=== PATIENT | female | born 1995 | race Caucasian/White ===

== ENCOUNTER 2017-09-17 10:05 | Inpatient (IN) | payer OTHER ==
[2017-09-17 11:18] VITALS: BMI 21.9
--- NOTE | 2017-09-17 15:27 | HP ---
COWS - Scale Resting Pulse: 2= [place] 101-120 Sweatin=Flushed/Facial Moisture Restless Observation: 1= Difficult to Sit Still Pupil Size: 0= Normal to Room Light Bone or Joint Aches: 2= Severe Diffuse Aches Runny Nose/ Eye Tearin= Runny Nose/Eyes GI Upset > 30mins: 1= Stomach Cramp Tremor Observation: 2= Slight Tremor Visible Yawning Observation: 2= >3x During Session Anxiety or Irritability: 2=Irritable/Anxious Goose Flesh Skin: 3=Piloerection COWS Score: 19 CIWA Score - CIWA Score Nausea/Vomitin-Mild Nausea/No Vomiting Muscle Tremors: 4-Moderate,w/Arms Extend Anxiety: 4-Mod. Anxious/Guarded Agitation: 4-Moderately Restless Paroxysmal Sweats: 3 Orientation: 0-Oriented Tacttile Disturbances: 0-None Auditory Disturbances: 0-None Visual Disturbances: 0-None Headache: 1-Very Mild CIWA-Ar Total Score: 17 Admission ROS S - HPI Chief Complaint: I am here to detox off these drugs. Allergies/Adverse Reactions: Allergies Allergy/AdvReac Type Severity Reaction Status Date / Time cyclobenzaprine Allergy Intermediate Hives Verified 09/17/17 13:19 [From [facility]] History of Present Illness: pt is a 22yr old female with a history of heroin and xanax dependence seeking detox for treatment. Exam Limitations: No Limitations - Ebola screening Have you traveled outside of the country in the last 21 days: No (N) Have you had contact with anyone from an Ebola affected area: No Have you been sick,other than usual withdrawal symptoms: No Do you have a fever: No - Review of Systems Constitutional: Chills, Diaphoresis, Loss of Appetite, Night Sweats, Changes in sleep EENT: reports: Tearing, Nose Congestion Respiratory: reports: No Symptoms reported Cardiac: reports: No Symptoms Reported GI: reports: Constipated, Nausea, Poor Appetite, Poor Fluid Intake, Indigestion : reports: No Symptoms Reported Musculoskeletal: reports: No Symptoms Reported Integumentary: reports: Flushing, Sweating Neuro: reports: Headache, Tingling, Tremors Endocrine: reports: Excessive Sweating, Flushing, Intolerance to Cold, Intolerance to Heat Hematology: reports: No Symptoms Reported Psychiatric: reports: No Sypmtoms Reported, Judgement Intact, Mood/Affect Appropiate, Orientated x3, Agitated, Anxious, Depressed Other Systems: Reviewed and Negative Patient History - Patient Medical History Hx Anemia: No Hx Asthma: No Hx Chronic Obstructive Pulmonary Disease (COPD): No Hx Cancer: No Hx Cardiac Disorders: No Hx Congestive Heart Failure: No Hx Hypertension: No Hx Hypercholesterolemia: No Hx Pacemaker: No HX Cerebrovascular Accident: No Hx Seizures: No Hx Dementia: No Hx Diabetes: No Hx Gastrointestinal Disorders: No Hx Liver Disease: No Hx Genitourinary Disorders: No Hx Sexually Transmitted Disorders: No Hx Renal Disease (ESRD): No Hx Thyroid Disease: No Hx Human Immunodeficiency Virus (HIV): No (negative) Hx Hepatitis C: No (negative) Hx Depression: Yes Hx Suicide Attempt: No (denies) Hx Bipolar Disorder: No Hx Schizophrenia: No - Patient Surgical History Past Surgical History: Yes Hx Neurologic Surgery: No Hx Cataract Extraction: No Hx Cardiac Surgery: No Hx Lung Surgery: No Hx Breast Surgery: No Hx Breast Biopsy: No Hx Abdominal Surgery: No Hx Appendectomy: No Hx Cholecystectomy: No Hx Genitourinary Surgery: No Hx Section: No Hx Orthopedic Surgery: Yes (MICRODISCECTOMY 12/2015) Hx Hysterectomy: No Anesthesia Reaction: No - PPD History Previous Implant?: Yes Documented Results: Negative w/o proof Implanted On Prior R Admission?: No PPD to be Administered?: Yes - Reproductive History Patient is a Female of Child Bearing Age (11 -55 yrs old): Yes Last Menstrual Period: 08/25/17 Patient : No - Smoking Cessation Smoking history: Current every day smoker Have you smoked in the past 12 months: Yes If you are a former smoker, when did you quit?: 1 WEEK AGO Hx Chewing Tobacco Use: No Initiated information on smoking cessation: Yes 'Breaking Loose' booklet given: 09/17/17 - Substance & Tx. History Hx Alcohol Use: No Hx Substance Use: Yes Substance Use Type: Heroin, Tranquilizers Hx Substance Use Treatment: Yes (last detox 06/2017 [facility]) - Substances Abused Heroin Route: Inhalation Frequency: Daily Amount used: 20 bags Age of first use: 20 Date of Last Use: 09/17/17 Alprazolam (Xanax) Route: Oral Frequency: Daily Amount used: 4-6 2 mg pills Age of first use: 18 Date of Last Use: 09/16/17 Family Disease History - Family Disease History Family Disease History: [place]: Grandparent Admission Physical Exam [facility] - Vital Signs Vital Signs: Vital Signs - 24 hr 09/17/17 11:15 Temperature 96.8 F L Pulse Rate 120 H Respiratory 18 Rate Blood Pressure 112/76 - Physical General Appearance: Yes: Appropriately Dressed, Moderate Distress, Thin, Tremorous, Irritable, Sweating, Anxious HEENTM: Yes: Normal Voice, Nasal Congestion, Rhinorrhea Respiratory: Yes: Lungs Clear, Normal Breath Sounds, No Respiratory Distress Neck: Yes: No masses,lesions,Nodules Breast: Yes: Within Normal Limits Cardiology: Yes: Regular Rhythm, Regular Rate, S1, S2 Abdominal: Yes: Normal Bowel Sounds, Non Tender, Soft Genitourinary: Yes: Within Normal Limits Back: Yes: Normal Inspection Musculoskeletal: Yes: full range of Motion, Gait Steady, Back pain Extremities: Yes: Normal Capillary Refill, Normal Inspection, Non-Tender, Tremors 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: Yes: Fully Oriented, Alert, Normal Response Integumentary: Yes: Normal Color, Diaphoresis Lymphatic: Yes: Within Normal Limits - Diagnostic (1) Opioid dependence with withdrawal Current Visit: Yes Status: Chronic (2) Sedative, hypnotic or anxiolytic dependence with withdrawal, uncomplicated Current Visit: Yes Status: Chronic (3) Nicotine dependence Current Visit: Yes Status: Chronic Qualifiers: Nicotine product type: cigarettes Substance use status: uncomplicated Qualified Code(s): F17.210 - Nicotine dependence, cigarettes, uncomplicated Cleared for Admission [facility] - Detox or Rehab [facility] Level of Care: Medically Managed Detox Regimen/Protocol: Methadone/Valium [facility] Breath Alcohol Content Breath Alcohol Content: 0 Urine Pregancy Test - Result Urine Test Results: Negative- NO Line Present Urine Drug Screen - Results Drug Screen Negative: No Urine Drug Screen Results: OPI-Opiates, BZO-Benzodiazepines, OXY-Oxycodone
[2017-09-17] MEDS ORDERED: ACETAMINOPHEN 325 MG TABLET (FP) PO PRN (15:34)
[2017-09-17] MEDS ORDERED: MAG HYDROX/AL HYDROX/SIMETH 30 ML UNIT-DOSE CUP PO PRN (15:34)
[2017-09-17] MEDS ORDERED: guaiFENesin/D-METHORPHAN HB 10 ML UNIT-DOSE CUPS PO PRN (15:34)
[2017-09-17] MEDS ORDERED: MENTHOL/PHENOL 1 EACH UD MM PRN (15:34)
[2017-09-17] MEDS ORDERED: P-EPHED 60MG/TRIPROLIDI 2.5MG TABLET PO PRN (15:34)
[2017-09-17] MEDS ORDERED: NICOTINE POLACRILEX 4 MG GUM BUC PRN (15:34)
[2017-09-17] MEDS ORDERED: MAGNESIUM HYDROX 2400MG/30ML ORAL SUSPENSION 30 ML CUP PO PRN (15:34)
[2017-09-17] MEDS ORDERED: LOPERAMIDE HCL 2 MG CAPSULE PO PRN (15:34)
[2017-09-17] MEDS ORDERED: IBUPROFEN 400 MG TABLET (FP) PO PRN (15:34)
[2017-09-17] MEDS ORDERED: MAGNESIUM CITRATE 300 ML BOTTLE PO PRN (15:34)
[2017-09-17] MEDS ORDERED: diazePAM 5 MG TABLET PO ONE (15:51)
[2017-09-17] MEDS ORDERED: METHADONE HCL 10 MG TABLET (FOR DETOX USE ONLY) PO ONE ×2 (15:51→23:00)
[2017-09-17] MEDS ORDERED: METHADONE HCL 10 MG TABLET (FOR DETOX USE ONLY) ONE (18:49)
[2017-09-17] MEDS: THIAMINE HCL 100 MG TABLET (FP) PO SCH (22:38)
[2017-09-17] MEDS: diazePAM 5 MG TABLET PO SCH (22:42)
[2017-09-17 23:19] LABS: URINE APPEARANCE SLCLOUDY; URINE BILIRUBIN NEGATIVE (NEGATIVE); URINE BLOOD NEGATIVE (NEGATIVE); URINE COLOR LTYELLOW; URINE GLUCOSE (UA) NEGATIVE (NEGATIVE); URINE KETONE NEGATIVE (NEGATIVE); URINE NITRITE NEGATIVE (NEGATIVE); URINE PROTEIN NEGATIVE (NEGATIVE); URINE UROBILINOGEN NEGATIVE mg/dL (0.2-1.0)
[2017-09-17 23:47] LABS: URINE LEUK ESTERASE 2+ (NEGATIVE)
[2017-09-18 00:26] LABS: EPI CELLS FEW /HPF (FEW); URINE BACTERIA RARE /hpf (NONE SEEN); URINE MUCUS RARE
[2017-09-18] MEDS: diazePAM 5 MG TABLET PO SCH ×3 (07:32→22:33)
[2017-09-18] MEDS ORDERED: METHADONE HCL 10 MG TABLET (FOR DETOX USE ONLY) PO SCH (10:00)
[2017-09-18 10:43] LABS: HEMATOCRIT 39.7 % (32.4-45.2); HEMOGLOBIN 13.4 GM/dL (10.7-15.3); MCH 29.2 pg (25.7-33.7); MCHC 33.6 g/dl (32.0-36.0); PLATELET COUNT 207 K/MM3 (134-434); RBC 4.56 M/mm3 (3.60-5.2); RDW 12.4 % (11.6-15.6); WHITE BLOOD COUNT 5.2 K/mm3 (4.0-10.0)
[2017-09-18 10:49] LABS: ALBUMIN 4.1 g/dl (3.4-5.0); ANION GAP 8 (8-16); BLOOD UREA NITROGEN 7 mg/dL (7-18); CHLORIDE 102 mmol/L (98-107); CO2 31 mmol/L (21-32); CREATININE 0.7 mg/dL (0.55-1.02); GLUCOSE,RANDOM 81 mg/dL (74-106); POTASSIUM 4.3 mmol/L (3.5-5.1); SGOT/AST 28 U/L (15-37); SGPT/ALT 27 U/L (12-78); SODIUM 141 mmol/L (136-145)
[2017-09-18 10:50] LABS: ALK PHOS 100 U/L (45-117); BILIRUBIN,TOTAL 0.4 mg/dL (0.2-1.0); TOT PROT 7.4 g/dl (6.4-8.2)
[2017-09-18] MEDS: PRENATAL VITAMINS W/ FOLIC ACID TABLET (FP) PO SCH (11:07)
[2017-09-18] MEDS: NICOTINE 14 MG/24 HOURS TOPICAL PATCH TD SCH (11:09)
[2017-09-18] MEDS: diazePAM 5 MG TABLET PO PRN ×2 (11:32→17:49)
[2017-09-18] MEDS ORDERED: CYCLOBENZAPRINE HCL 10 MG TABLET (FP) PO PRN (12:17)
--- NOTE | 2017-09-18 12:17 | PN ---
[facility] CIWA - CIWA Score Nausea/Vomitin Muscle Tremors: 3 Anxiety: 3 Agitation: 2 Paroxysmal Sweats: 1-Minimal Palms Moist Orientation: 0-Oriented Tacttile Disturbances: 1-Very Mild Itch/Numbness Auditory Disturbances: 1-Very Mild Visual Disturbances: 0-None Headache: 2-Mild CIWA-Ar Total Score: 16 [facility] COWS - Scale Resting Pulse: 0= [place] 80 or Below Sweatin= Chills/Flushing Restless Observation: 3= Extraneous Movement Pupil Size: 1= Pupils >than Normal Bone or Joint Aches: 2= Severe Diffuse Aches Runny Nose/ Eye Tearin= Runny Nose/Eyes GI Upset > 30mins: 2= Nausea/Diarrhea Tremor Observation of Outstretched Hands: 2= Slight Tremor Visible Yawning Observation: 1= 1-2x During Session Anxiety or Irritability: 2=Irritable/Anxious Goose Flesh Skin: 0=Smooth Skin COWS Score: 16 [facility] Progress Note (SOAP) Subjective: ALERT,IRRITABLE,ANXIOUS,INTERRUPTED SLEEP,TREMOR,PAIN N THE BODY AND BACK Objective: 09/18/17 12:13 Vital Signs Temperature 97.7 F 09/18/17 10:28 Pulse Rate 80 09/18/17 10:28 Respiratory Rate 16 09/18/17 10:28 Blood Pressure 106/71 09/18/17 10:28 O2 Sat by Pulse Oximetry (%) 09/18/17 12:14 EKG NSR WITH SINUS ARRHYTHMIA 09/18/17 12:16 Laboratory Last Values WBC 5.2 K/mm3 (4.0-10.0) 09/18/17 06:00 RBC 4.56 M/mm3 (3.60-5.2) 09/18/17 06:00 Hgb 13.4 GM/dL (10.7-15.3) 09/18/17 06:00 Hct 39.7 % (32.4-45.2) 09/18/17 06:00 MCV 87.0 fl (80-96) 09/18/17 06:00 MCH 29.2 pg (25.7-33.7) 09/18/17 06:00 MCHC 33.6 g/dl (32.0-36.0) 09/18/17 06:00 RDW 12.4 % (11.6-15.6) 09/18/17 06:00 Plt Count 207 K/MM3 (134-434) 09/18/17 06:00 MPV 9.0 fl (7.5-11.1) 09/18/17 06:00 Sodium 141 mmol/L (136-145) 09/18/17 06:00 Potassium 4.3 mmol/L (3.5-5.1) 09/18/17 06:00 Chloride 102 mmol/L (98-107) 09/18/17 06:00 Carbon Dioxide 31 mmol/L (21-32) 09/18/17 06:00 Anion Gap 8 (8-16) 09/18/17 06:00 BUN 7 mg/dL (7-18) 09/18/17 06:00 Creatinine 0.7 mg/dL (0.55-1.02) 09/18/17 06:00 Creat Clearance w eGFR > 60 (>60) 09/18/17 06:00 Random Glucose 81 mg/dL (74-106) 09/18/17 06:00 Calcium 9.0 mg/dL (8.5-10.1) 09/18/17 06:00 Total Bilirubin 0.4 mg/dL (0.2-1.0) 09/18/17 06:00 AST 28 U/L (15-37) 09/18/17 06:00 ALT 27 U/L (12-78) 09/18/17 06:00 Alkaline Phosphatase 100 U/L (45-117) 09/18/17 06:00 Total Protein 7.4 g/dl (6.4-8.2) 09/18/17 06:00 Albumin 4.1 g/dl (3.4-5.0) 09/18/17 06:00 Urine Color Ltyellow 09/17/17 21:00 Urine Appearance Slcloudy 09/17/17 21:00 Urine pH 6.0 (5.0-8.0) 09/17/17 21:00 Ur Specific [place] 1.005 (1.001-1.035) 09/17/17 21:00 Urine Protein Negative (NEGATIVE) 09/17/17 21:00 Urine Glucose (UA) Negative (NEGATIVE) 09/17/17 21:00 Urine Ketones Negative (NEGATIVE) 09/17/17 21:00 Urine Blood Negative (NEGATIVE) 09/17/17 21:00 Urine Nitrite Negative (NEGATIVE) 09/17/17 21:00 Urine Bilirubin Negative (NEGATIVE) 09/17/17 21:00 Urine Urobilinogen Negative mg/dL (0.2-1.0) 09/17/17 21:00 Ur Leukocyte Esterase 2+ (NEGATIVE) H 09/17/17 21:00 Urine WBC (Auto) 9 /hpf (3-5) 09/17/17 21:00 Urine RBC (Auto) 2 /hpf (0-3) 09/17/17 21:00 Ur Epithelial Cells Few /HPF (FEW) 09/17/17 21:00 Urine Bacteria Rare /hpf (NONE SEEN) 09/17/17 21:00 Urine Mucus Rare 09/17/17 21:00 Assessment: 09/18/17 12:16 WITHDRAWAL SYMPTOM Plan: CONTINUE DETOX
--- NOTE | 2017-09-18 16:58 | EKG ---
Test Reason : Blood Pressure : / mmHG Vent. Rate : 069 BPM Atrial Rate : 069 BPM P-R Int : 148 ms QRS Dur : 090 ms QT Int : 398 ms P-R-T Axes : 037 072 054 degrees QTc Int : 426 ms NORMAL SINUS RHYTHM WITH SINUS ARRHYTHMIA NORMAL ECG NO PREVIOUS ECGS AVAILABLE Confirmed by DION ROJAS MD ([id number]) on 09/18/2017 4:58:26 PM Referred By: Confirmed By:DION ROJAS MD
--- NOTE | 2017-09-18 18:17 | CONSULT ---
[facility] Psychiatric Consult - Data Date of interview: 09/18/17 Admission source: [facility] Identifying data: First admission to [facility] for this 22 y/o female seeking detox treatment on for heroin and xanax dependence.Patient is single without children,domiciled,unemployed and supported by her parents. Substance Abuse History: Confirmed by patient.See details in current [facility] report : Smoking history: Current every day smoker. Have you smoked in the past 12 months: Yes. If you are a former smoker, when did you quit?: 1 WEEK AGO. Hx Chewing Tobacco Use: No. Initiated information on smoking cessation: Yes. ' Breaking Loose' booklet given: 09/17/17. - Substance & Tx. History. Hx Alcohol Use: No. Hx Substance Use: Yes. Substance Use Type: Heroin, Tranquilizers. Hx Substance Use Treatment: Yes (last detox 06/2017 [facility]). - Substances Abused. Heroin. Route: Inhalation. Frequency: Daily. Amount used: 20 bags. Age of first use: 20. Date of Last Use: . Alprazolam (Xanax). Route: Oral. Frequency: Daily. Amount used: 4-6 2 mg pills. Age of first use: 18. Date of Last Use: 09/16/17 Medical History: History of fracture of nasal bones,torn rotator cuff and microdiscectomy (2016). Psychiatric History: Patient denies. Physical/Sexual Abuse/Trauma History: Patient denies. Additional Comment: Urine Drug Screen Results: OPI-Opiates, BZO-Benzodiazepines , OXY-Oxycodone.Noted. Mental Status Exam - Mental Status Exam Alert and Oriented to: Time, Place, Person Cognitive Function: Good Patient Appearance: Well Groomed (thin habitus,short stature and appearing younger than her stated age) Mood: Anxious, Hopeful Affect: Mood Congruent Patient Behavior: Fatigued, Cooperative Speech Pattern: Clear, Appropriate Voice Loudness: Normal Thought Process: Intact, Goal Oriented Thought Disorder: Not Present Hallucinations: Denies Suicidal Ideation: Denies Homicidal Ideation: Denies Insight/Judgement: Poor Sleep: Well Appetite: Good Muscle strength/Tone: Normal (no complaint of rigidity or weakness) Gait/Station: Normal Psychiatric Findings - Problem List ([place] 1, 2,3) (1) Opioid dependence with withdrawal Current Visit: Yes Status: Acute (2) Sedative, hypnotic or anxiolytic dependence with withdrawal, uncomplicated Current Visit: Yes Status: Acute (3) Nicotine dependence Current Visit: Yes Status: Acute Qualifiers: Nicotine product type: cigarettes Substance use status: uncomplicated Qualified Code(s): F17.210 - Nicotine dependence, cigarettes, uncomplicated - Initial Treatment Plan Initial Treatment Plan: Psychoeducation and support provided.Detoxification in progress.Daily group therapy.Observation.
[2017-09-18] MEDS: THIAMINE HCL 100 MG TABLET (FP) PO SCH (22:32)
[2017-09-18] MEDS: cloNIDine HCL 0.1 MG TABLET PO SCH (23:44)
[2017-09-19] MEDS: diazePAM 5 MG TABLET PO PRN (06:59)
[2017-09-19] MEDS: PRENATAL VITAMINS W/ FOLIC ACID TABLET (FP) PO SCH (10:57)
[2017-09-19] MEDS: NICOTINE 14 MG/24 HOURS TOPICAL PATCH TD SCH (10:57)
[2017-09-19] MEDS: diazePAM 5 MG TABLET PO SCH ×2 (10:58→22:33)
[2017-09-19] MEDS: METHADONE HCL 5 MG TABLET (FOR DETOX USE ONLY) PO SCH (10:58)
[2017-09-19] MEDS: cloNIDine HCL 0.1 MG TABLET PO SCH ×2 (10:58→23:44)
--- NOTE | 2017-09-19 12:49 | PN ---
[facility] CIWA - CIWA Score Nausea/Vomitin-No Nausea/No Vomiting Muscle Tremors: 3 Anxiety: 3 Agitation: 3 Paroxysmal Sweats: 1-Minimal Palms Moist Orientation: 0-Oriented Tacttile Disturbances: 1-Very Mild Itch/Numbness Auditory Disturbances: 0-None Visual Disturbances: 0-None Headache: 0-None Present CIWA-Ar Total Score: 11 [facility] COWS - Scale Resting Pulse: 1= [place] 81-100 Sweatin= Chills/Flushing Restless Observation: 1= Difficult to Sit Still Pupil Size: 0= Normal to Room Light Bone or Joint Aches: 2= Severe Diffuse Aches Runny Nose/ Eye Tearin= Nasal Congestion GI Upset > 30mins: 1= Stomach Cramp Tremor Observation of Outstretched Hands: 2= Slight Tremor Visible Yawning Observation: 0= None Anxiety or Irritability: 2=Irritable/Anxious Goose Flesh Skin: 0=Smooth Skin COWS Score: 11 [facility] Progress Note (SOAP) Subjective: tremor sweat stuffy nose restlessness GI distress Objective: 09/19/17 12:49 Vital Signs Temperature 97.9 F 09/19/17 10:00 Pulse Rate 93 H 09/19/17 10:00 Respiratory Rate 20 09/19/17 10:00 Blood Pressure 103/66 09/19/17 10:00 O2 Sat by Pulse Oximetry (%) Laboratory Last Values WBC 5.2 K/mm3 (4.0-10.0) 09/18/17 06:00 RBC 4.56 M/mm3 (3.60-5.2) 09/18/17 06:00 Hgb 13.4 GM/dL (10.7-15.3) 09/18/17 06:00 Hct 39.7 % (32.4-45.2) 09/18/17 06:00 MCV 87.0 fl (80-96) 09/18/17 06:00 MCH 29.2 pg (25.7-33.7) 09/18/17 06:00 MCHC 33.6 g/dl (32.0-36.0) 09/18/17 06:00 RDW 12.4 % (11.6-15.6) 09/18/17 06:00 Plt Count 207 K/MM3 (134-434) 09/18/17 06:00 MPV 9.0 fl (7.5-11.1) 09/18/17 06:00 Sodium 141 mmol/L (136-145) 09/18/17 06:00 Potassium 4.3 mmol/L (3.5-5.1) 09/18/17 06:00 Chloride 102 mmol/L (98-107) 09/18/17 06:00 Carbon Dioxide 31 mmol/L (21-32) 09/18/17 06:00 Anion Gap 8 (8-16) 09/18/17 06:00 BUN 7 mg/dL (7-18) 09/18/17 06:00 Creatinine 0.7 mg/dL (0.55-1.02) 09/18/17 06:00 Creat Clearance w eGFR > 60 (>60) 09/18/17 06:00 Random Glucose 81 mg/dL (74-106) 09/18/17 06:00 Calcium 9.0 mg/dL (8.5-10.1) 09/18/17 06:00 Total Bilirubin 0.4 mg/dL (0.2-1.0) 09/18/17 06:00 AST 28 U/L (15-37) 09/18/17 06:00 ALT 27 U/L (12-78) 09/18/17 06:00 Alkaline Phosphatase 100 U/L (45-117) 09/18/17 06:00 Total Protein 7.4 g/dl (6.4-8.2) 09/18/17 06:00 Albumin 4.1 g/dl (3.4-5.0) 09/18/17 06:00 Urine Color Ltyellow 09/17/17 21:00 Urine Appearance Slcloudy 09/17/17 21:00 Urine pH 6.0 (5.0-8.0) 09/17/17 21:00 Ur Specific [place] 1.005 (1.001-1.035) 09/17/17 21:00 Urine Protein Negative (NEGATIVE) 09/17/17 21:00 Urine Glucose (UA) Negative (NEGATIVE) 09/17/17 21:00 Urine Ketones Negative (NEGATIVE) 09/17/17 21:00 Urine Blood Negative (NEGATIVE) 09/17/17 21:00 Urine Nitrite Negative (NEGATIVE) 09/17/17 21:00 Urine Bilirubin Negative (NEGATIVE) 09/17/17 21:00 Urine Urobilinogen Negative mg/dL (0.2-1.0) 09/17/17 21:00 Ur Leukocyte Esterase 2+ (NEGATIVE) H 09/17/17 21:00 Urine WBC (Auto) 9 /hpf (3-5) 09/17/17 21:00 Urine RBC (Auto) 2 /hpf (0-3) 09/17/17 21:00 Ur Epithelial Cells Few /HPF (FEW) 09/17/17 21:00 Urine Bacteria Rare /hpf (NONE SEEN) 09/17/17 21:00 Urine Mucus Rare 09/17/17 21:00 RPR Titer Nonreactive (NONREACTIVE) 09/18/17 06:00 HIV 1&2 Antibody Screen Negative 09/17/17 13:26 HIV P24 Antigen Negative 09/17/17 13:26 lab noted Assessment: 09/19/17 12:49 withdrawal sx Plan: continue detox
[2017-09-19] MEDS: THIAMINE HCL 100 MG TABLET (FP) PO SCH (22:33)
[2017-09-19] MEDS: hydrOXYzine PAMOATE 50 MG CAPSULE (FP) PO PRN (22:33)
[2017-09-20] MEDS: PRENATAL VITAMINS W/ FOLIC ACID TABLET (FP) PO SCH (11:06)
[2017-09-20] MEDS: cloNIDine HCL 0.1 MG TABLET PO SCH ×2 (11:06→22:35)
[2017-09-20] MEDS: diazePAM 5 MG TABLET PO SCH ×2 (11:07→22:32)
[2017-09-20] MEDS: NICOTINE 14 MG/24 HOURS TOPICAL PATCH TD SCH (11:07)
[2017-09-20] MEDS: METHADONE HCL 5 MG TABLET (FOR DETOX USE ONLY) PO SCH (11:07)
--- NOTE | 2017-09-20 11:56 | PN ---
[facility] Progress Note (SOAP) Subjective: ALERT,IRRITABLE,ANXIOUS,INTERRUPTED SLEEP,LEWIS IN THE BODY Objective: 09/20/17 11:56 Vital Signs Temperature 98 F 09/20/17 11:45 Pulse Rate 91 H 09/20/17 11:45 Respiratory Rate 16 09/20/17 11:45 Blood Pressure 135/111 09/20/17 11:45 O2 Sat by Pulse Oximetry (%) Assessment: 09/20/17 11:56 WITHDRAWAL SYMPTOM Plan: CONTINUE DETOX
[2017-09-20] MEDS: THIAMINE HCL 100 MG TABLET (FP) PO SCH (22:32)
[2017-09-20] MEDS: hydrOXYzine PAMOATE 50 MG CAPSULE (FP) PO PRN (22:33)
[2017-09-21] MEDS ORDERED: diazePAM 5 MG TABLET PO SCH (10:00)
[2017-09-21] MEDS ORDERED: METHADONE HCL 10 MG TABLET (FOR DETOX USE ONLY) PO SCH (10:00)
[2017-09-21] MEDS: PRENATAL VITAMINS W/ FOLIC ACID TABLET (FP) PO SCH (10:49)
[2017-09-21] MEDS: NICOTINE 14 MG/24 HOURS TOPICAL PATCH TD SCH (10:50)
[2017-09-21] MEDS: cloNIDine HCL 0.1 MG TABLET PO SCH ×2 (10:50→22:50)
--- NOTE | 2017-09-21 13:07 | PN ---
[facility] Progress Note (SOAP) Subjective: Alert, Interrupted sleep, irritable, shakes and chills Objective: 09/21/17 13:05 Vital Signs Temperature 97.7 F 09/21/17 10:19 Pulse Rate 92 H 09/21/17 10:19 Respiratory Rate 18 09/21/17 10:19 Blood Pressure 100/58 09/21/17 10:19 O2 Sat by Pulse Oximetry (%) Laboratory Last Values WBC 5.2 K/mm3 (4.0-10.0) 09/18/17 06:00 RBC 4.56 M/mm3 (3.60-5.2) 09/18/17 06:00 Hgb 13.4 GM/dL (10.7-15.3) 09/18/17 06:00 Hct 39.7 % (32.4-45.2) 09/18/17 06:00 MCV 87.0 fl (80-96) 09/18/17 06:00 MCH 29.2 pg (25.7-33.7) 09/18/17 06:00 MCHC 33.6 g/dl (32.0-36.0) 09/18/17 06:00 RDW 12.4 % (11.6-15.6) 09/18/17 06:00 Plt Count 207 K/MM3 (134-434) 09/18/17 06:00 MPV 9.0 fl (7.5-11.1) 09/18/17 06:00 Sodium 141 mmol/L (136-145) 09/18/17 06:00 Potassium 4.3 mmol/L (3.5-5.1) 09/18/17 06:00 Chloride 102 mmol/L (98-107) 09/18/17 06:00 Carbon Dioxide 31 mmol/L (21-32) 09/18/17 06:00 Anion Gap 8 (8-16) 09/18/17 06:00 BUN 7 mg/dL (7-18) 09/18/17 06:00 Creatinine 0.7 mg/dL (0.55-1.02) 09/18/17 06:00 Creat Clearance w eGFR > 60 (>60) 09/18/17 06:00 Random Glucose 81 mg/dL (74-106) 09/18/17 06:00 Calcium 9.0 mg/dL (8.5-10.1) 09/18/17 06:00 Total Bilirubin 0.4 mg/dL (0.2-1.0) 09/18/17 06:00 AST 28 U/L (15-37) 09/18/17 06:00 ALT 27 U/L (12-78) 09/18/17 06:00 Alkaline Phosphatase 100 U/L (45-117) 09/18/17 06:00 Total Protein 7.4 g/dl (6.4-8.2) 09/18/17 06:00 Albumin 4.1 g/dl (3.4-5.0) 09/18/17 06:00 Urine Color Ltyellow 09/17/17 21:00 Urine Appearance Slcloudy 09/17/17 21:00 Urine pH 6.0 (5.0-8.0) 09/17/17 21:00 Ur Specific [place] 1.005 (1.001-1.035) 09/17/17 21:00 Urine Protein Negative (NEGATIVE) 09/17/17 21:00 Urine Glucose (UA) Negative (NEGATIVE) 09/17/17 21:00 Urine Ketones Negative (NEGATIVE) 09/17/17 21:00 Urine Blood Negative (NEGATIVE) 09/17/17 21:00 Urine Nitrite Negative (NEGATIVE) 09/17/17 21:00 Urine Bilirubin Negative (NEGATIVE) 09/17/17 21:00 Urine Urobilinogen Negative mg/dL (0.2-1.0) 09/17/17 21:00 Ur Leukocyte Esterase 2+ (NEGATIVE) H 09/17/17 21:00 Urine WBC (Auto) 9 /hpf (3-5) 09/17/17 21:00 Urine RBC (Auto) 2 /hpf (0-3) 09/17/17 21:00 Ur Epithelial Cells Few /HPF (FEW) 09/17/17 21:00 Urine Bacteria Rare /hpf (NONE SEEN) 09/17/17 21:00 Urine Mucus Rare 09/17/17 21:00 RPR Titer Nonreactive (NONREACTIVE) 09/18/17 06:00 HIV 1&2 Antibody Screen Negative 09/17/17 13:26 HIV P24 Antigen Negative 09/17/17 13:26 Labs noted Assessment: 09/21/17 13:07 withdrawal symptoms Plan: Continue detox
[2017-09-21] MEDS: hydrOXYzine PAMOATE 50 MG CAPSULE (FP) PO PRN (22:48)
[2017-09-21] MEDS: THIAMINE HCL 100 MG TABLET (FP) PO SCH (22:48)
[2017-09-22] MEDS ORDERED: METHADONE HCL 5 MG TABLET (FOR DETOX USE ONLY) PO SCH (06:00)
[2017-09-22 07:31] VITALS: BP 81/48; PULSE 60; TEMP 98.1
--- NOTE | 2017-09-22 08:18 | DS ---
[facility] Detox Discharge Summary Admission Date: 09/17/17 Discharge Date: 09/22/17 - History Present History: Alcohol Dependence, Opioid Dependence - Physical Exam Results Vital Signs: Vital Signs Temperature 98.1 F 09/22/17 05:00 Pulse Rate 60 09/22/17 05:00 Respiratory Rate 20 09/22/17 05:00 Blood Pressure 81/48 09/22/17 05:00 O2 Sat by Pulse Oximetry (%) - Treatment Hospital Course: Detox Protocol Followed, Detoxed Safely, Responded well, Discharged Condition Good - Medication Discharge Medications: Ambulatory Orders NK [No Known Home Medication] 08/04/16
== END 2017-09-22 07:49 | disposition home or self-care (01) | DRG 773 ==
LOC: YASAS 10:05 → Y6N 15:17
PROVIDERS: ADMIT Internal Medicine; ATTEND Internal Medicine
PROC: HZ2ZZZZ Detoxification Services for Substance Abuse Treatment (ICD-10-PCS; principal; 2017-09-17)
DX: F11.23 Opioid dependence with withdrawal (principal); F13.230 Sedative, hypnotic or anxiolytic dependence with withdrawal, uncomplicated; F17.210 Nicotine dependence, cigarettes, uncomplicated; I49.9 Cardiac arrhythmia, unspecified; Z88.8 Allergy status to other drugs, medicaments and biological substances
CPT/HCPCS: 36415; 80053; 81003; 81015; 85027; 86593; 87389; 93005; 93010

== ENCOUNTER 2017-10-08 11:00 | Inpatient (IN) | payer OTHER ==
[2017-10-08 12:19] VITALS: BMI 22.6
--- NOTE | 2017-10-08 16:39 | HP ---
COWS - Scale Resting Pulse: 0= [place] 80 or Below Sweatin= Chills/Flushing Restless Observation: 1= Difficult to Sit Still Pupil Size: 0= Normal to Room Light Bone or Joint Aches: 2= Severe Diffuse Aches Runny Nose/ Eye Tearin= Runny Nose/Eyes GI Upset > 30mins: 0= None Tremor Observation: 2= Slight Tremor Visible Yawning Observation: 1= 1-2x During Session Anxiety or Irritability: 2=Irritable/Anxious Goose Flesh Skin: 3=Piloerection COWS Score: 14 CIWA Score - CIWA Score Nausea/Vomitin-No Nausea/No Vomiting Muscle Tremors: 3 Anxiety: 4-Mod. Anxious/Guarded Agitation: 2 Paroxysmal Sweats: 3 Orientation: 0-Oriented Tacttile Disturbances: 2-Mild Itch/Numbness/Burn Auditory Disturbances: 0-None Visual Disturbances: 0-None Headache: 3-Moderate CIWA-Ar Total Score: 17 Admission ROS S - HPI Chief Complaint: "I'm need to get my life back on track and not have to rely on Heroin to get through the day." Patient is here to Detox from Heroin and Xanax (non-prescribed). Allergies/Adverse Reactions: Allergies Allergy/AdvReac Type Severity Reaction Status Date / Time cyclobenzaprine Allergy Intermediate Hives Verified 10/08/17 12:29 [From Flexeril] History of Present Illness: Patient is a 22 YO female here to Detox from Heroin and Xanax (non-prescribed). Patient has one previous detox admission at [facility] in 09/2017. Patient has had Detox admissions at [facility] (03/2017, 04/2017, and 06/2017). Exam Limitations: No Limitations - Ebola screening Have you traveled outside of the country in the last 21 days: No (N) Have you had contact with anyone from an Ebola affected area: No Have you been sick,other than usual withdrawal symptoms: No Do you have a fever: No - Review of Systems Constitutional: Chills, Diaphoresis, Fever, Loss of Appetite, Malaise, Changes in sleep EENT: reports: No Symptoms Reported Respiratory: reports: No Symptoms reported Cardiac: reports: No Symptoms Reported GI: reports: Indigestion (Heartburn.) : reports: No Symptoms Reported Musculoskeletal: reports: Muscle Pain, Joint Stiffness Integumentary: reports: No Symptoms Reported Neuro: reports: Headache, Tremors Endocrine: reports: No Symptoms Reported Hematology: reports: No Symptoms Reported Psychiatric: reports: Judgement Intact, Mood/Affect Appropiate, Orientated x3, Anxious, Depressed Other Systems: Reviewed and Negative Patient History - Patient Medical History Hx Anemia: No Hx Asthma: No Hx Chronic Obstructive Pulmonary Disease (COPD): No Hx Cancer: No Hx Cardiac Disorders: No Hx Congestive Heart Failure: No Hx Hypertension: No Hx Hypercholesterolemia: No Hx Pacemaker: No HX Cerebrovascular Accident: No Hx Seizures: No Hx Dementia: No Hx Diabetes: No Hx Gastrointestinal Disorders: No Hx Liver Disease: No Hx Genitourinary Disorders: No Hx Sexually Transmitted Disorders: No Hx Renal Disease (ESRD): No Hx Thyroid Disease: No Hx Human Immunodeficiency Virus (HIV): No (Last Tested: 09/2017.) Hx Hepatitis C: No (Never Tested.) Hx Depression: No (No previous treatment.) Hx Suicide Attempt: No (PAITENT DENIES CURRENT SI / HI.) Hx Bipolar Disorder: No Hx Schizophrenia: No Other Medical History: DENIES. - Patient Surgical History Past Surgical History: Yes Hx Neurologic Surgery: No Hx Cataract Extraction: No Hx Cardiac Surgery: No Hx Lung Surgery: No Hx Breast Surgery: No Hx Breast Biopsy: No Hx Abdominal Surgery: No Hx Appendectomy: No Hx Cholecystectomy: No Hx Genitourinary Surgery: No Hx Section: No Hx Orthopedic Surgery: Yes (MICRODISCECTOMY 12/2015; ROTATOR CUFF REPAIR (07/2016 ).) Hx Hysterectomy: No Other Surgical History: nasal fx in 07/2016 Anesthesia Reaction: No - PPD History Previous Implant?: Yes Documented Results: Negative w/proof Implanted On Prior [facility] Admission?: Yes Date: 09/19/17 Results: 0 mm PPD to be Administered?: No - Reproductive History Patient is a Female of Child Bearing Age (11 -55 yrs old): Yes Last Menstrual Period: 08/25/17 Patient : No - Smoking Cessation Smoking history: Current every day smoker Have you smoked in the past 12 months: Yes Aproximately how many cigarettes per day: 2 If you are a former smoker, when did you quit?: 1 WEEK AGO Cigars Per Day: 0 Hx Chewing Tobacco Use: No Initiated information on smoking cessation: Yes 'Breaking Loose' booklet given: 02/02/18 (GIVEN TO PATIENT.) - Substance & Tx. History Hx Alcohol Use: No Hx Substance Use: Yes Substance Use Type: Heroin, Tranquilizers Hx Substance Use Treatment: Yes (Detox admission at [facility] (09/2017); Detox at [facility] (2016).) - Substances Abused Heroin Route: Injection Frequency: Daily Amount used: 20 bags Age of first use: 21 Date of Last Use: 10/08/17 Xanax Route: Oral Frequency: 3-6 times per week Amount used: 4-6 mg. Age of first use: 22 Date of Last Use: 10/06/17 Family Disease History - Family Disease History Family Disease History: [place]: Grandparent Admission Physical Exam [facility] - Vital Signs Vital Signs: Vital Signs - 24 hr 10/08/17 12:16 Temperature 96.2 F L Pulse Rate 79 Respiratory 16 Rate Blood Pressure 110/76 - Physical General Appearance: Yes: No Apparent Distress, Nourished, Appropriately Dressed , Tremorous, Anxious HEENTM: Yes: Hearing grossly Normal, Normocephalic, Normal Voice, KRISTEN, Pharynx Normal Respiratory: Yes: Chest Non-Tender, Lungs Clear, No Respiratory Distress, No Accessory Muscle Use Neck: Yes: No masses,lesions,Nodules, Supple, Trachea in good position Breast: Yes: Breast Exam Deferred Cardiology: Yes: Regular Rhythm, Regular Rate, S1, S2 Abdominal: Yes: Normal Bowel Sounds, Non Tender, Flat, Soft Genitourinary: Yes: Within Normal Limits Back: Yes: Normal Inspection Musculoskeletal: Yes: full range of Motion, Gait Steady Extremities: Yes: Normal Capillary Refill, Normal Range of Motion, Non-Tender, Tremors 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: Yes: Fully Oriented, Alert, Normal Mood/Affect, Normal Response Integumentary: Yes: Normal Color, Dry, Warm, Track Barr (Noted on bilateral forearms. No signs of infection noted ay any affected site.) Lymphatic: Yes: Within Normal Limits - Diagnostic (1) Nicotine dependence Current Visit: Yes Status: Chronic Qualifiers: Nicotine product type: cigarettes Substance use status: uncomplicated Qualified Code(s): F17.210 - Nicotine dependence, cigarettes, uncomplicated (2) Opioid dependence with withdrawal Current Visit: Yes Status: Acute (3) Sedative, hypnotic or anxiolytic dependence with withdrawal, uncomplicated Current Visit: Yes Status: Acute Cleared for Admission [facility] - Detox or Rehab [facility] Level of Care: Medically Managed Detox Regimen/Protocol: Methadone/Valium [facility] Breath Alcohol Content Breath Alcohol Content: 0 Urine Pregancy Test - Result Urine Test Results: Negative- NO Line Present Urine Drug Screen - Results Urine Drug Screen Results: OPI-Opiates, BZO-Benzodiazepines, OXY-Oxycodone
[2017-10-08] MEDS ORDERED: MAG HYDROX/AL HYDROX/SIMETH 30 ML UNIT-DOSE CUP PO PRN (16:57)
[2017-10-08] MEDS ORDERED: ACETAMINOPHEN 325 MG TABLET (FP) PO PRN (16:57)
[2017-10-08] MEDS ORDERED: MAGNESIUM HYDROX 2400MG/30ML ORAL SUSPENSION 30 ML CUP PO PRN (16:57)
[2017-10-08] MEDS ORDERED: guaiFENesin/D-METHORPHAN HB 10 ML UNIT-DOSE CUPS PO PRN (16:57)
[2017-10-08] MEDS ORDERED: MAGNESIUM CITRATE 300 ML BOTTLE PO PRN (16:57)
[2017-10-08] MEDS ORDERED: LOPERAMIDE HCL 2 MG CAPSULE PO PRN (16:57)
[2017-10-08] MEDS ORDERED: P-EPHED 60MG/TRIPROLIDI 2.5MG TABLET PO PRN (16:57)
[2017-10-08] MEDS ORDERED: MENTHOL/PHENOL 1 EACH UD MM PRN (16:57)
[2017-10-08] MEDS ORDERED: IBUPROFEN 400 MG TABLET (FP) PO PRN (16:57)
[2017-10-08] MEDS ORDERED: diazePAM 5 MG TABLET PO ONE (17:30)
[2017-10-08] MEDS ORDERED: METHADONE HCL 10 MG TABLET (FOR DETOX USE ONLY) PO ONE ×2 (17:30→23:00)
[2017-10-08] MEDS: diazePAM 5 MG TABLET PO SCH (22:22)
[2017-10-08] MEDS: THIAMINE HCL 100 MG TABLET (FP) PO SCH (22:22)
[2017-10-08 23:04] LABS: URINE APPEARANCE TURBID; URINE BILIRUBIN NEGATIVE (NEGATIVE); URINE BLOOD NEGATIVE (NEGATIVE); URINE COLOR AMBER; URINE GLUCOSE (UA) 1+ (NEGATIVE); URINE KETONE NEGATIVE (NEGATIVE); URINE LEUK ESTERASE TRACE (NEGATIVE); URINE NITRITE NEGATIVE (NEGATIVE); URINE PROTEIN NEGATIVE (NEGATIVE)
[2017-10-08 23:15] LABS: CALCIUM OXALATE CRYSTALS RARE /hpf (NONE SEEN); EPI CELLS RARE /HPF (FEW)
[2017-10-09] MEDS: diazePAM 5 MG TABLET PO SCH ×3 (05:36→21:20)
[2017-10-09] MEDS ORDERED: METHADONE HCL 10 MG TABLET (FOR DETOX USE ONLY) PO SCH (10:00)
[2017-10-09 10:39] LABS: HEMATOCRIT 37.6 % (32.4-45.2); HEMOGLOBIN 12.6 GM/dL (10.7-15.3); MCH 29.1 pg (25.7-33.7); MCHC 33.4 g/dl (32.0-36.0); MEAN CELL VOLUME 87.2 fl (80-96); MEAN PLT VOLUME 8.4 fl (7.5-11.1); PLATELET COUNT 228 K/MM3 (134-434); RBC 4.31 M/mm3 (3.60-5.2); RDW 12.6 % (11.6-15.6); WHITE BLOOD COUNT 5.2 K/mm3 (4.0-10.0)
[2017-10-09] MEDS: diazePAM 5 MG TABLET PO PRN ×2 (10:40→23:36)
[2017-10-09] MEDS: PRENATAL VITAMINS W/ FOLIC ACID TABLET (FP) PO SCH (10:40)
[2017-10-09 11:21] LABS: CHLORIDE 104 mmol/L (98-107); POTASSIUM 4.1 mmol/L (3.5-5.1); SGOT/AST 19 U/L (15-37); SGPT/ALT 25 U/L (12-78); SODIUM 139 mmol/L (136-145)
[2017-10-09 11:43] LABS: ALK PHOS 84 U/L (45-117); ANION GAP 5 (8-16); BILIRUBIN,TOTAL 0.5 mg/dL (0.2-1.0); BLOOD UREA NITROGEN 4 mg/dL (7-18); CALCIUM 8.7 mg/dL (8.5-10.1); CO2 30 mmol/L (21-32); CREATININE 0.7 mg/dL (0.55-1.02); GLUCOSE,RANDOM 81 mg/dL (74-106); TOT PROT 7.1 g/dl (6.4-8.2)
[2017-10-09] MEDS ORDERED: FLU VACCINE QUAD 60 MCG/0.5 ML (MDV 17-18) IM ONE (12:00)
--- NOTE | 2017-10-09 13:16 | PN ---
S CIWA - CIWA Score Nausea/Vomitin Muscle Tremors: 3 Anxiety: 3 Agitation: 3 Paroxysmal Sweats: 1-Minimal Palms Moist Orientation: 0-Oriented Tacttile Disturbances: 1-Very Mild Itch/Numbness Auditory Disturbances: 1-Very Mild Visual Disturbances: 1-Very Mild Sensitivity Headache: 2-Mild CIWA-Ar Total Score: 18 BHS COWS - Scale Resting Pulse: 0= [place] 80 or Below Sweatin= Chills/Flushing Restless Observation: 3= Extraneous Movement Pupil Size: 1= Pupils >than Normal Bone or Joint Aches: 2= Severe Diffuse Aches Runny Nose/ Eye Tearin= Runny Nose/Eyes GI Upset > 30mins: 3= Vomiting/Diarrhea Tremor Observation of Outstretched Hands: 2= Slight Tremor Visible Yawning Observation: 1= 1-2x During Session Anxiety or Irritability: 2=Irritable/Anxious Goose Flesh Skin: 0=Smooth Skin COWS Score: 17 S Progress Note (SOAP) Subjective: ALERT,IRRITABLE,ANXIOUS,INTERRUPTED SLEEP,TREMOR,PAIN IN THE BODY AND BACK Objective: 10/09/17 13:13 Vital Signs Temperature 97.2 F L 10/09/17 10:14 Pulse Rate 78 10/09/17 10:14 Respiratory Rate 18 10/09/17 10:14 Blood Pressure 133/82 10/09/17 10:14 O2 Sat by Pulse Oximetry (%) EKG NSR WITH SINUS ARRHYTHMIA NO CHEST PAIN,NO SOB,NO DIZZINESS Laboratory Last Values WBC 5.2 K/mm3 (4.0-10.0) 10/09/17 06:00 RBC 4.31 M/mm3 (3.60-5.2) 10/09/17 06:00 Hgb 12.6 GM/dL (10.7-15.3) 10/09/17 06:00 Hct 37.6 % (32.4-45.2) 10/09/17 06:00 MCV 87.2 fl (80-96) 10/09/17 06:00 MCH 29.1 pg (25.7-33.7) 10/09/17 06:00 MCHC 33.4 g/dl (32.0-36.0) 10/09/17 06:00 RDW 12.6 % (11.6-15.6) 10/09/17 06:00 Plt Count 228 K/MM3 (134-434) 10/09/17 06:00 MPV 8.4 fl (7.5-11.1) 10/09/17 06:00 Sodium 139 mmol/L (136-145) 10/09/17 06:00 Potassium 4.1 mmol/L (3.5-5.1) 10/09/17 06:00 Chloride 104 mmol/L (98-107) 10/09/17 06:00 Carbon Dioxide 30 mmol/L (21-32) 10/09/17 06:00 Anion Gap 5 (8-16) L 10/09/17 06:00 BUN 4 mg/dL (7-18) L 10/09/17 06:00 Creatinine 0.7 mg/dL (0.55-1.02) 10/09/17 06:00 Creat Clearance w eGFR > 60 (>60) 10/09/17 06:00 Random Glucose 81 mg/dL (74-106) 10/09/17 06:00 Calcium 8.7 mg/dL (8.5-10.1) 10/09/17 06:00 Total Bilirubin 0.5 mg/dL (0.2-1.0) D 10/09/17 06:00 AST 19 U/L (15-37) 10/09/17 06:00 ALT 25 U/L (12-78) 10/09/17 06:00 Alkaline Phosphatase 84 U/L (45-117) 10/09/17 06:00 Total Protein 7.1 g/dl (6.4-8.2) 10/09/17 06:00 Albumin 4.0 g/dl (3.4-5.0) 10/09/17 06:00 Urine Color Joanie 10/08/17 22:26 Urine Appearance Turbid 10/08/17 22:26 Urine pH 5.0 (5.0-8.0) 10/08/17 22:26 Ur Specific [place] 1.024 (1.001-1.035) 10/08/17 22:26 Urine Protein Negative (NEGATIVE) 10/08/17 22:26 Urine Glucose (UA) 1+ (NEGATIVE) H 10/08/17 22:26 Urine Ketones Negative (NEGATIVE) 02/02/18 22:26 Urine Blood Negative (NEGATIVE) 10/08/17 22:26 Urine Nitrite Negative (NEGATIVE) 10/08/17 22:26 Urine Bilirubin Negative (NEGATIVE) 10/08/17 22:26 Urine Urobilinogen 2.0 mg/dL (0.2-1.0) H 10/08/17 22:26 Ur Leukocyte Esterase Trace (NEGATIVE) 10/08/17 22:26 Urine WBC (Auto) 5 /hpf (3-5) 10/08/17 22:26 Urine RBC (Auto) 2 /hpf (0-3) 10/08/17 22:26 Ur Epithelial Cells Rare /HPF (FEW) 10/08/17 22:26 Calcium Oxalate Crystal Rare /hpf (NONE SEEN) 10/08/17 22:26 RPR Titer Nonreactive (NONREACTIVE) 10/09/17 06:00 HIV 1&2 Antibody Screen Negative 10/08/17 13:00 HIV P24 Antigen Negative 10/08/17 13:00 Assessment: 10/09/17 13:15 WITHDRAWAL SYMPTOM Plan: CONTINUE DETOX
--- NOTE | 2017-10-09 15:13 | CONSULT ---
[facility] Psychiatric Consult - Data Date of interview: 10/09/17 Admission source: [facility] Identifying data: Second admission to [facility] for this 22 y/o female seeking detox treatment on for heroin and xanax dependence.Patient is single without children,domiciled,unemployed and supported by her parents. Substance Abuse History: Discussed with the patient in this session.Ms Thomas confirmed continuous use of heroin and xanax (non-trescribed). See current [facility] report for details .Smoking history: Current every day smoker. Have you smoked in the past 12 months: Yes. Aproximately how many cigarettes per day: 2. If you are a former smoker, when did you quit?: 1 WEEK AGO. Cigars Per Day: 0. Hx Chewing Tobacco Use: No. Initiated information on smoking cessation: Yes. ' Breaking Loose' booklet given: 10/08/17 (GIVEN TO PATIENT.). - Substance & Tx. History. Hx Alcohol Use: No. Hx Substance Use: Yes. Substance Use Type: Heroin, Tranquilizers. Hx Substance Use Treatment: Yes (Detox admission at [facility] (09/2017); Detox at [facility] (2016).). - Substances Abused. Heroin. Route: Injection. Frequency: Daily. Amount used: 20 bags. Age of first use: 21. Date of Last Use: 10/08/17. Xanax. Route: Oral. Frequency : 3-6 times per week. Amount used: 4-6 mg. Age of first use: 22. Date of Last Use: 10/06/17 Medical History: History of fracture of nasal bones,torn rotator cuff and microdiscectomy (2015). Psychiatric History: Patient denies history of psychiatric hospitalizations.Prescribed seroquel and buspar during treatment at another detox facility (July 2017).Ms Thomas declares that she stopped taking these medications 4-6 weeks ago due to intolerable side-effects.patient denies history of suicide attempts. Physical/Sexual Abuse/Trauma History: Patient denies. Additional Comment: Urine Drug Screen Results: OPI-Opiates, BZO-Benzodiazepines , OXY-Oxycodone.Noted. Mental Status Exam - Mental Status Exam Alert and Oriented to: Time, Place, Person Cognitive Function: Good Patient Appearance: Well Groomed Mood: Withdrawn, Anxious Affect: Mood Congruent, Constricted Patient Behavior: Fatigued, Appropriate, Cooperative Speech Pattern: Clear, Appropriate Voice Loudness: Normal Thought Process: Intact, Goal Oriented Thought Disorder: Not Present Hallucinations: Denies Suicidal Ideation: Denies Homicidal Ideation: Denies Insight/Judgement: Poor Sleep: Poorly, Difficulty falling asleep Appetite: Good Muscle strength/Tone: Normal Gait/Station: Normal Psychiatric Findings - Problem List ([place] 1, 2,3) (1) Opioid dependence with withdrawal Current Visit: Yes Status: Acute (2) Sedative, hypnotic or anxiolytic dependence with withdrawal, uncomplicated Current Visit: Yes Status: Acute (3) Nicotine dependence Current Visit: Yes Status: Acute Qualifiers: Nicotine product type: cigarettes Substance use status: uncomplicated Qualified Code(s): F17.210 - Nicotine dependence, cigarettes, uncomplicated (4) Substance induced mood disorder Current Visit: Yes Status: Acute - Initial Treatment Plan Initial Treatment Plan: Records revisited.Psychoeducation and support provided to the patient.Detoxification in effect.Sleep hygiene discussed.Ambien 5 mg po hs prn.Ordered.Patient informed of risk of parasomnias (sleep-walking).Ms Martha agrees with this careplan.Observation.
[2017-10-09] MEDS: THIAMINE HCL 100 MG TABLET (FP) PO SCH (22:47)
[2017-10-09] MEDS: ZOLPIDEM TARTRATE 5 MG TABLET PO PRN (23:36)
[2017-10-10] MEDS: diazePAM 5 MG TABLET PO SCH ×2 (10:40→22:32)
[2017-10-10] MEDS: METHADONE HCL 5 MG TABLET (FOR DETOX USE ONLY) PO SCH (10:40)
[2017-10-10] MEDS: PRENATAL VITAMINS W/ FOLIC ACID TABLET (FP) PO SCH (10:40)
--- NOTE | 2017-10-10 11:06 | PN ---
[facility] CIWA - CIWA Score Nausea/Vomitin-Mild Nausea/No Vomiting Muscle Tremors: 3 Anxiety: 4-Mod. Anxious/Guarded Agitation: 4-Moderately Restless Paroxysmal Sweats: 1-Minimal Palms Moist Orientation: 0-Oriented Tacttile Disturbances: 1-Very Mild Itch/Numbness Auditory Disturbances: 0-None Visual Disturbances: 0-None Headache: 0-None Present CIWA-Ar Total Score: 14 BHS COWS - Scale Resting Pulse: 1= [place] 81-100 Sweatin= Chills/Flushing Restless Observation: 1= Difficult to Sit Still Pupil Size: 0= Normal to Room Light Bone or Joint Aches: 2= Severe Diffuse Aches Runny Nose/ Eye Tearin= Runny Nose/Eyes GI Upset > 30mins: 2= Nausea/Diarrhea Tremor Observation of Outstretched Hands: 2= Slight Tremor Visible Yawning Observation: 2= >3x During Session Anxiety or Irritability: 2=Irritable/Anxious Goose Flesh Skin: 0=Smooth Skin COWS Score: 15 [facility] Progress Note (SOAP) Subjective: tremor sweat anxiety restlessness agitation general body aches Objective: 10/10/17 11:08 Vital Signs Temperature 98.1 F 10/10/17 10:18 Pulse Rate 81 10/10/17 10:18 Respiratory Rate 16 10/10/17 10:18 Blood Pressure 107/63 10/10/17 10:18 O2 Sat by Pulse Oximetry (%) Laboratory Last Values WBC 5.2 K/mm3 (4.0-10.0) 10/09/17 06:00 RBC 4.31 M/mm3 (3.60-5.2) 10/09/17 06:00 Hgb 12.6 GM/dL (10.7-15.3) 10/09/17 06:00 Hct 37.6 % (32.4-45.2) 10/09/17 06:00 MCV 87.2 fl (80-96) 10/09/17 06:00 MCH 29.1 pg (25.7-33.7) 10/09/17 06:00 MCHC 33.4 g/dl (32.0-36.0) 10/09/17 06:00 RDW 12.6 % (11.6-15.6) 10/09/17 06:00 Plt Count 228 K/MM3 (134-434) 10/09/17 06:00 MPV 8.4 fl (7.5-11.1) 10/09/17 06:00 Sodium 139 mmol/L (136-145) 10/09/17 06:00 Potassium 4.1 mmol/L (3.5-5.1) 10/09/17 06:00 Chloride 104 mmol/L (98-107) 10/09/17 06:00 Carbon Dioxide 30 mmol/L (21-32) 10/09/17 06:00 Anion Gap 5 (8-16) L 10/09/17 06:00 BUN 4 mg/dL (7-18) L 10/09/17 06:00 Creatinine 0.7 mg/dL (0.55-1.02) 10/09/17 06:00 Creat Clearance w eGFR > 60 (>60) 10/09/17 06:00 Random Glucose 81 mg/dL (74-106) 10/09/17 06:00 Calcium 8.7 mg/dL (8.5-10.1) 10/09/17 06:00 Total Bilirubin 0.5 mg/dL (0.2-1.0) D 10/09/17 06:00 AST 19 U/L (15-37) 10/09/17 06:00 ALT 25 U/L (12-78) 10/09/17 06:00 Alkaline Phosphatase 84 U/L (45-117) 10/09/17 06:00 Total Protein 7.1 g/dl (6.4-8.2) 10/09/17 06:00 Albumin 4.0 g/dl (3.4-5.0) 10/09/17 06:00 Urine Color Joanie 10/08/17 22:26 Urine Appearance Turbid 10/08/17 22:26 Urine pH 5.0 (5.0-8.0) 10/08/17 22:26 Ur Specific [place] 1.024 (1.001-1.035) 10/08/17 22:26 Urine Protein Negative (NEGATIVE) 10/08/17 22:26 Urine Glucose (UA) 1+ (NEGATIVE) H 10/08/17 22:26 Urine Ketones Negative (NEGATIVE) 10/08/17 22:26 Urine Blood Negative (NEGATIVE) 10/08/17 22:26 Urine Nitrite Negative (NEGATIVE) 10/08/17 22:26 Urine Bilirubin Negative (NEGATIVE) 10/08/17 22:26 Urine Urobilinogen 2.0 mg/dL (0.2-1.0) H 10/08/17 22:26 Ur Leukocyte Esterase Trace (NEGATIVE) 10/08/17 22:26 Urine WBC (Auto) 5 /hpf (3-5) 10/08/17 22:26 Urine RBC (Auto) 2 /hpf (0-3) 10/08/17 22:26 Ur Epithelial Cells Rare /HPF (FEW) 10/08/17 22:26 Calcium Oxalate Crystal Rare /hpf (NONE SEEN) 10/08/17 22:26 RPR Titer Nonreactive (NONREACTIVE) 10/09/17 06:00 Hepatitis C Antibody 0.1 s/co ratio (0.0-0.9) 10/09/17 08:30 HIV 1&2 Antibody Screen Negative 10/08/17 13:00 HIV P24 Antigen Negative 10/08/17 13:00 lab noted Assessment: 10/10/17 11:09 withdrawal sx Plan: continue detox
--- NOTE | 2017-10-10 13:22 | EKG ---
Test Reason : Blood Pressure : / mmHG Vent. Rate : 071 BPM Atrial Rate : 071 BPM P-R Int : 128 ms QRS Dur : 088 ms QT Int : 384 ms P-R-T Axes : 034 073 050 degrees QTc Int : 417 ms NORMAL SINUS RHYTHM WITH SINUS ARRHYTHMIA NORMAL ECG WHEN COMPARED WITH ECG OF 17-SEP-2017 17:18, NO SIGNIFICANT CHANGE WAS FOUND BASELINE ARTIFACT Confirmed by ROSA MARIA BROUSSARD, DANNY ([id number]) on 10/10/2017 1:22:08 PM Referred By: Confirmed By:DANNY CRANE MD
[2017-10-10] MEDS: diazePAM 5 MG TABLET PO PRN ×2 (13:29→17:31)
[2017-10-10] MEDS: THIAMINE HCL 100 MG TABLET (FP) PO SCH (22:32)
[2017-10-10] MEDS: ZOLPIDEM TARTRATE 5 MG TABLET PO PRN (22:32)
--- NOTE | 2017-10-11 09:15 | PN ---
S Progress Note (SOAP) Subjective: tremor anxiety sweat irritable agitation Objective: 10/11/17 09:14 Vital Signs Temperature 96.4 F L 10/11/17 06:28 Pulse Rate 89 10/11/17 06:28 Respiratory Rate 19 10/11/17 06:28 Blood Pressure 108/60 10/11/17 06:28 O2 Sat by Pulse Oximetry (%) Laboratory Last Values WBC 5.2 K/mm3 (4.0-10.0) 10/09/17 06:00 RBC 4.31 M/mm3 (3.60-5.2) 10/09/17 06:00 Hgb 12.6 GM/dL (10.7-15.3) 10/09/17 06:00 Hct 37.6 % (32.4-45.2) 10/09/17 06:00 MCV 87.2 fl (80-96) 10/09/17 06:00 MCH 29.1 pg (25.7-33.7) 10/09/17 06:00 MCHC 33.4 g/dl (32.0-36.0) 10/09/17 06:00 RDW 12.6 % (11.6-15.6) 10/09/17 06:00 Plt Count 228 K/MM3 (134-434) 10/09/17 06:00 MPV 8.4 fl (7.5-11.1) 10/09/17 06:00 Sodium 139 mmol/L (136-145) 10/09/17 06:00 Potassium 4.1 mmol/L (3.5-5.1) 10/09/17 06:00 Chloride 104 mmol/L (98-107) 10/09/17 06:00 Carbon Dioxide 30 mmol/L (21-32) 10/09/17 06:00 Anion Gap 5 (8-16) L 10/09/17 06:00 BUN 4 mg/dL (7-18) L 10/09/17 06:00 Creatinine 0.7 mg/dL (0.55-1.02) 10/09/17 06:00 Creat Clearance w eGFR > 60 (>60) 10/09/17 06:00 Random Glucose 81 mg/dL (74-106) 10/09/17 06:00 Calcium 8.7 mg/dL (8.5-10.1) 10/09/17 06:00 Total Bilirubin 0.5 mg/dL (0.2-1.0) D 10/09/17 06:00 AST 19 U/L (15-37) 10/09/17 06:00 ALT 25 U/L (12-78) 10/09/17 06:00 Alkaline Phosphatase 84 U/L (45-117) 10/09/17 06:00 Total Protein 7.1 g/dl (6.4-8.2) 10/09/17 06:00 Albumin 4.0 g/dl (3.4-5.0) 10/09/17 06:00 Urine Color Joanie 10/08/17 22:26 Urine Appearance Turbid 10/08/17 22:26 Urine pH 5.0 (5.0-8.0) 10/08/17 22:26 Ur Specific [place] 1.024 (1.001-1.035) 10/08/17 22:26 Urine Protein Negative (NEGATIVE) 10/08/17 22:26 Urine Glucose (UA) 1+ (NEGATIVE) H 10/08/17 22:26 Urine Ketones Negative (NEGATIVE) 10/08/17 22:26 Urine Blood Negative (NEGATIVE) 10/08/17 22:26 Urine Nitrite Negative (NEGATIVE) 10/08/17 22:26 Urine Bilirubin Negative (NEGATIVE) 10/08/17 22:26 Urine Urobilinogen 2.0 mg/dL (0.2-1.0) H 10/08/17 22:26 Ur Leukocyte Esterase Trace (NEGATIVE) 10/08/17 22:26 Urine WBC (Auto) 5 /hpf (3-5) 10/08/17 22:26 Urine RBC (Auto) 2 /hpf (0-3) 10/08/17 22:26 Ur Epithelial Cells Rare /HPF (FEW) 10/08/17 22:26 Calcium Oxalate Crystal Rare /hpf (NONE SEEN) 10/08/17 22:26 RPR Titer Nonreactive (NONREACTIVE) 10/09/17 06:00 Hepatitis C Antibody 0.1 s/co ratio (0.0-0.9) 10/09/17 08:30 HIV 1&2 Antibody Screen Negative 10/08/17 13:00 HIV P24 Antigen Negative 10/08/17 13:00 lab noted Assessment: 10/11/17 09:15 withdrawal sx Plan: continue detox
[2017-10-11] MEDS: PRENATAL VITAMINS W/ FOLIC ACID TABLET (FP) PO SCH (10:36)
[2017-10-11] MEDS: METHADONE HCL 5 MG TABLET (FOR DETOX USE ONLY) PO SCH (10:36)
[2017-10-11] MEDS: diazePAM 5 MG TABLET PO SCH ×2 (10:36→22:16)
[2017-10-11] MEDS: THIAMINE HCL 100 MG TABLET (FP) PO SCH (22:16)
[2017-10-11] MEDS: ZOLPIDEM TARTRATE 5 MG TABLET PO PRN (22:16)
[2017-10-12 07:10] VITALS: BP 101/56; PULSE 66; TEMP 97.9
--- NOTE | 2017-10-12 09:13 | DS ---
[facility] Detox Discharge Summary Admission Date: 10/08/17 Discharge Date: 10/12/17 - History Present History: Opioid Dependence - Physical Exam Results Vital Signs: Vital Signs Temperature 97.9 F 10/12/17 06:00 Pulse Rate 66 10/12/17 06:00 Respiratory Rate 18 10/12/17 06:00 Blood Pressure 101/56 10/12/17 06:00 O2 Sat by Pulse Oximetry (%) Pertinent Admission Physical Exam Findings: withdrawal sx Laboratory Last Values WBC 5.2 K/mm3 (4.0-10.0) 10/09/17 06:00 RBC 4.31 M/mm3 (3.60-5.2) 10/09/17 06:00 Hgb 12.6 GM/dL (10.7-15.3) 10/09/17 06:00 Hct 37.6 % (32.4-45.2) 10/09/17 06:00 MCV 87.2 fl (80-96) 10/09/17 06:00 MCH 29.1 pg (25.7-33.7) 10/09/17 06:00 MCHC 33.4 g/dl (32.0-36.0) 10/09/17 06:00 RDW 12.6 % (11.6-15.6) 10/09/17 06:00 Plt Count 228 K/MM3 (134-434) 10/09/17 06:00 MPV 8.4 fl (7.5-11.1) 10/09/17 06:00 Sodium 139 mmol/L (136-145) 10/09/17 06:00 Potassium 4.1 mmol/L (3.5-5.1) 10/09/17 06:00 Chloride 104 mmol/L (98-107) 10/09/17 06:00 Carbon Dioxide 30 mmol/L (21-32) 10/09/17 06:00 Anion Gap 5 (8-16) L 10/09/17 06:00 BUN 4 mg/dL (7-18) L 10/09/17 06:00 Creatinine 0.7 mg/dL (0.55-1.02) 10/09/17 06:00 Creat Clearance w eGFR > 60 (>60) 10/09/17 06:00 Random Glucose 81 mg/dL (74-106) 10/09/17 06:00 Calcium 8.7 mg/dL (8.5-10.1) 10/09/17 06:00 Total Bilirubin 0.5 mg/dL (0.2-1.0) D 10/09/17 06:00 AST 19 U/L (15-37) 10/09/17 06:00 ALT 25 U/L (12-78) 10/09/17 06:00 Alkaline Phosphatase 84 U/L (45-117) 10/09/17 06:00 Total Protein 7.1 g/dl (6.4-8.2) 10/09/17 06:00 Albumin 4.0 g/dl (3.4-5.0) 10/09/17 06:00 Urine Color Joanie 10/08/17 22:26 Urine Appearance Turbid 10/08/17 22:26 Urine pH 5.0 (5.0-8.0) 10/08/17 22:26 Ur Specific [place] 1.024 (1.001-1.035) 10/08/17 22:26 Urine Protein Negative (NEGATIVE) 10/08/17 22:26 Urine Glucose (UA) 1+ (NEGATIVE) H 10/08/17 22:26 Urine Ketones Negative (NEGATIVE) 10/08/17 22:26 Urine Blood Negative (NEGATIVE) 10/08/17 22:26 Urine Nitrite Negative (NEGATIVE) 10/08/17 22:26 Urine Bilirubin Negative (NEGATIVE) 10/08/17 22:26 Urine Urobilinogen 2.0 mg/dL (0.2-1.0) H 10/08/17 22:26 Ur Leukocyte Esterase Trace (NEGATIVE) 10/08/17 22:26 Urine WBC (Auto) 5 /hpf (3-5) 10/08/17 22:26 Urine RBC (Auto) 2 /hpf (0-3) 10/08/17 22:26 Ur Epithelial Cells Rare /HPF (FEW) 10/08/17 22:26 Calcium Oxalate Crystal Rare /hpf (NONE SEEN) 10/08/17 22:26 RPR Titer Nonreactive (NONREACTIVE) 10/09/17 06:00 Hepatitis C Antibody 0.1 s/co ratio (0.0-0.9) 10/09/17 08:30 HIV 1&2 Antibody Screen Negative 10/08/17 13:00 HIV P24 Antigen Negative 10/08/17 13:00 lab n oted - Treatment Hospital Course: Detox Protocol Followed, Detoxed Safely, Responded well, Discharged Condition Good, Rehab Referral Accepted Patient has Accepted a Rehab Referral to: as per counselor arranged - Medication Discharge Medications: Ambulatory Orders NK [No Known Home Medication] 08/04/16 - Diagnosis (1) Opioid dependence with withdrawal Current Visit: Yes Status: Acute - AMA Did Patient Leave Against Medical Advice: No
[2017-10-12] MEDS: PRENATAL VITAMINS W/ FOLIC ACID TABLET (FP) PO SCH (09:32)
[2017-10-12] MEDS ORDERED: METHADONE HCL 10 MG TABLET (FOR DETOX USE ONLY) PO SCH (10:00)
[2017-10-12] MEDS ORDERED: diazePAM 5 MG TABLET PO SCH (10:00)
[2017-10-12] MEDS ORDERED: METHADONE HCL 5 MG TABLET (FOR DETOX USE ONLY) PO SCH (10:00)
[2017-10-13] MEDS ORDERED: METHADONE HCL 5 MG TABLET (FOR DETOX USE ONLY) PO SCH (06:00)
== END 2017-10-12 10:07 | disposition home or self-care (01) | DRG 773 ==
LOC: YASAS 11:00 → Y6N 15:14
PROVIDERS: ADMIT Internal Medicine; ATTEND Internal Medicine
PROC: HZ2ZZZZ Detoxification Services for Substance Abuse Treatment (ICD-10-PCS; principal; 2017-10-08)
DX: F11.23 Opioid dependence with withdrawal (principal); F13.230 Sedative, hypnotic or anxiolytic dependence with withdrawal, uncomplicated; F17.210 Nicotine dependence, cigarettes, uncomplicated; F19.24 Other psychoactive substance dependence with psychoactive substance-induced mood disorder; I49.9 Cardiac arrhythmia, unspecified; Z88.8 Allergy status to other drugs, medicaments and biological substances
CPT/HCPCS: 36415; 80053; 81003; 81015; 85027; 86593; 86803; 87389; 90688; 93005; 93010

== ENCOUNTER 2017-12-25 15:49 | Inpatient (IN) | payer OTHER ==
[2017-12-25 16:33] VITALS: BMI 21.7
--- NOTE | 2017-12-25 19:55 | HP ---
COWS - Scale Resting Pulse: 0= [place] 80 or Below Sweatin=Flushed/Facial Moisture Restless Observation: 1= Difficult to Sit Still Pupil Size: 0= Normal to Room Light Bone or Joint Aches: 1= Mild Discomfort Runny Nose/ Eye Tearin= Nasal Congestion GI Upset > 30mins: 2= Nausea/Diarrhea Tremor Observation: 4= Gross Tremor/Twitching Yawning Observation: 1= 1-2x During Session Anxiety or Irritability: 2=Irritable/Anxious Goose Flesh Skin: 0=Smooth Skin COWS Score: 14 Admission ROS S - HPI Chief Complaint: "I want to get off and I don't want to be using everyday" Allergies/Adverse Reactions: Allergies Allergy/AdvReac Type Severity Reaction Status Date / Time cyclobenzaprine Allergy Intermediate Hives Verified 12/25/17 17:46 [From [facility]] History of Present Illness: 22 year old female with a one year history of heroin use presents for detox. Pt was last here at [facility] in October. denies any other substance abuse. Pt had rehab at [facility] in october. Said she stopped smoking x one month ago. Denies any medical nor psych hx. Denies previous nor current SI Exam Limitations: No Limitations - Ebola screening Have you traveled outside of the country in the last 21 days: No (N) Have you had contact with anyone from an Ebola affected area: No Have you been sick,other than usual withdrawal symptoms: No Do you have a fever: No - Review of Systems Constitutional: No Symptoms Reported EENT: reports: Other (runny nose) Respiratory: reports: No Symptoms reported Cardiac: reports: No Symptoms Reported GI: reports: Nausea, Abdominal cramping : reports: No Symptoms Reported Musculoskeletal: reports: Other (leg ache) Integumentary: reports: No Symptoms Reported Neuro: reports: No Symptoms reported Endocrine: reports: Flushing, Intolerance to Heat Hematology: reports: No Symptoms Reported Psychiatric: reports: Anxious Patient History - Patient Medical History Hx Anemia: No Hx Asthma: No Hx Chronic Obstructive Pulmonary Disease (COPD): No Hx Cancer: No Hx Cardiac Disorders: No Hx Congestive Heart Failure: No Hx Hypertension: No Hx Hypercholesterolemia: No Hx Pacemaker: No HX Cerebrovascular Accident: No Hx Seizures: No Hx Dementia: No Hx Diabetes: No Hx Gastrointestinal Disorders: No Hx Liver Disease: No Hx Genitourinary Disorders: No Hx Sexually Transmitted Disorders: No Hx Renal Disease (ESRD): No Hx Thyroid Disease: No Hx Human Immunodeficiency Virus (HIV): No (Last Tested: 09/2017.) Hx Hepatitis C: No (Never Tested.) Hx Depression: No (No previous treatment.) Hx Suicide Attempt: No (PAITENT DENIES CURRENT SI / HI.) Hx Bipolar Disorder: No Hx Schizophrenia: No - Patient Surgical History Past Surgical History: Yes Hx Neurologic Surgery: No Hx Cataract Extraction: No Hx Cardiac Surgery: No Hx Lung Surgery: No Hx Breast Surgery: No Hx Breast Biopsy: No Hx Abdominal Surgery: No Hx Appendectomy: No Hx Cholecystectomy: No Hx Genitourinary Surgery: No Hx Section: No Hx Orthopedic Surgery: Yes (MICRODISCECTOMY 12/2015; ROTATOR CUFF REPAIR (07/2016 ).) Hx Hysterectomy: No Other Surgical History: nasal fx in 07/2016 Anesthesia Reaction: No - PPD History Documented Results: Negative w/proof Date: 09/19/17 Results: 0 mm PPD to be Administered?: No - Reproductive History Patient is a Female of Child Bearing Age (11 -55 yrs old): Yes Last Menstrual Period: 08/25/17 Patient : No - Smoking Cessation Smoking history: Former smoker Have you smoked in the past 12 months: Yes Aproximately how many cigarettes per day: 2 If you are a former smoker, when did you quit?: 1 month AGO Cigars Per Day: 0 Hx Chewing Tobacco Use: No Initiated information on smoking cessation: Yes 'Breaking Loose' booklet given: 12/25/17 - Substance & Tx. History Hx Alcohol Use: No Hx Substance Use: Yes (Heroin) Substance Use Type: Heroin - Substances Abused Heroin Route: Injection Frequency: Daily Amount used: 15 bags Age of first use: 21 Date of Last Use: 12/25/17 Family Disease History - Family Disease History Family Disease History: [place]: Grandparent Admission Physical Exam BHS - Vital Signs Vital Signs: Vital Signs - 24 hr 12/25/17 16:32 Temperature 97.7 F Pulse Rate 72 Respiratory 18 Rate Blood Pressure 119/70 - Physical General Appearance: Yes: Mild Distress HEENTM: Yes: Nasal Congestion Respiratory: Yes: Lungs Clear, No Respiratory Distress Neck: Yes: No masses,lesions,Nodules Breast: Yes: Breast Exam Deferred Cardiology: Yes: Regular Rate Abdominal: Yes: Non Tender, Soft Genitourinary: Yes: Within Normal Limits Back: Yes: Normal Inspection Musculoskeletal: Yes: full range of Motion, Gait Steady Extremities: Yes: Other (track elliott to both antecubital areas and hands) 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: Yes: Within Normal Limits, Fully Oriented, Motor Strength 5/5 Integumentary: Yes: Track Elliott (both AC and hands), Other (lips dry) - Diagnostic (1) Opioid dependence with withdrawal Current Visit: No Status: Acute (2) Sedative, hypnotic or anxiolytic dependence with withdrawal, uncomplicated Current Visit: No Status: Acute (3) Substance induced mood disorder Current Visit: No Status: Acute (4) Dehydration Current Visit: Yes Status: Acute (5) Insomnia Current Visit: Yes Status: Acute (6) Weight loss Current Visit: Yes Status: Acute (7) Track elliott due to intravenous drug abuse Current Visit: Yes Status: Acute Cleared for Admission [facility] - Detox or Rehab [facility] Level of Care: Medically Managed Detox Regimen/Protocol: Methadone [facility] Breath Alcohol Content Breath Alcohol Content: 0 Urine Pregancy Test - Result Urine Test Results: Negative- NO Line Present Urine Drug Screen - Results Drug Screen Negative: No Urine Drug Screen Results: OPI-Opiates
[2017-12-25] MEDS ORDERED: MAGNESIUM CITRATE 300 ML BOTTLE PO PRN (20:16)
[2017-12-25] MEDS ORDERED: P-EPHED 60MG/TRIPROLIDI 2.5MG TABLET PO PRN (20:16)
[2017-12-25] MEDS ORDERED: MENTHOL/PHENOL 1 EACH UD MM PRN (20:16)
[2017-12-25] MEDS ORDERED: guaiFENesin/D-METHORPHAN HB 10 ML UNIT-DOSE CUPS PO PRN (20:16)
[2017-12-25] MEDS ORDERED: MAG HYDROX/AL HYDROX/SIMETH 30 ML UNIT-DOSE CUP PO PRN (20:16)
[2017-12-25] MEDS ORDERED: LOPERAMIDE HCL 2 MG CAPSULE PO PRN (20:16)
[2017-12-25] MEDS ORDERED: IBUPROFEN 400 MG TABLET (FP) PO PRN (20:16)
[2017-12-25] MEDS ORDERED: ACETAMINOPHEN 325 MG TABLET (FP) PO PRN (20:16)
[2017-12-25] MEDS ORDERED: MAGNESIUM HYDROX 2400MG/30ML ORAL SUSPENSION 30 ML CUP PO PRN (20:16)
[2017-12-25] MEDS ORDERED: METHADONE HCL 10 MG TABLET (FOR DETOX USE ONLY) PO ONE ×2 (20:16→23:00)
[2017-12-25] MEDS: diazePAM 5 MG TABLET PO PRN (20:37)
[2017-12-25] MEDS ORDERED: MELATONIN 5 MG TABLETS PO PRN (22:00)
[2017-12-25] MEDS: THIAMINE HCL 100 MG TABLET (FP) PO SCH (22:22)
[2017-12-25] MEDS: BACITRACIN 0.9 GM PACKET TP SCH (22:22)
--- NOTE | 2017-12-26 08:33 | EKG ---
Test Reason : Blood Pressure : / mmHG Vent. Rate : 056 BPM Atrial Rate : 056 BPM P-R Int : 138 ms QRS Dur : 090 ms QT Int : 406 ms P-R-T Axes : 049 072 050 degrees QTc Int : 391 ms SINUS BRADYCARDIA OTHERWISE NORMAL ECG WHEN COMPARED WITH ECG OF 08-OCT-2017 18:12, NO SIGNIFICANT CHANGE WAS FOUND Confirmed by JAQUAN VAZQUEZ MD ([id number]) on 12/26/2017 8:32:49 AM Referred By: Confirmed By:JAQUAN VAZQUEZ MD
[2017-12-26 09:59] LABS: HEMATOCRIT 35.2 % (32.4-45.2); HEMOGLOBIN 12.1 GM/dL (10.7-15.3); MCH 30.1 pg (25.7-33.7); MCHC 34.4 g/dl (32.0-36.0); MEAN CELL VOLUME 87.6 fl (80-96); MEAN PLT VOLUME 8.5 fl (7.5-11.1); PLATELET COUNT 187 K/MM3 (134-434); RBC 4.01 M/mm3 (3.60-5.2); RDW 13.2 % (11.6-15.6); WHITE BLOOD COUNT 4.6 K/mm3 (4.0-10.0)
[2017-12-26] MEDS ORDERED: METHADONE HCL 10 MG TABLET (FOR DETOX USE ONLY) PO ONE (10:00)
[2017-12-26 10:04] LABS: URINE APPEARANCE CLOUDY; URINE BILIRUBIN NEGATIVE (<2.0 mg/dL); URINE BLOOD 1+ (NEGATIVE); URINE COLOR YELLOW; URINE GLUCOSE (UA) NEGATIVE (NEGATIVE); URINE KETONE NEGATIVE (NEGATIVE); URINE LEUK ESTERASE TRACE (NEGATIVE); URINE NITRITE NEGATIVE (NEGATIVE); URINE PROTEIN NEGATIVE (NEGATIVE)
[2017-12-26] MEDS: PRENATAL VITAMINS W/ FOLIC ACID TABLET (FP) PO SCH (10:10)
[2017-12-26] MEDS: BACITRACIN 0.9 GM PACKET TP SCH ×2 (10:10→22:13)
[2017-12-26] MEDS: diazePAM 5 MG TABLET PO PRN ×2 (10:10→20:06)
[2017-12-26 10:12] LABS: EPI CELLS FEW /HPF (FEW); URINE MUCUS RARE
[2017-12-26 10:15] LABS: ALBUMIN 3.7 g/dl (3.4-5.0); ANION GAP 6 (8-16); BLOOD UREA NITROGEN 8 mg/dL (7-18); CALCIUM 8.6 mg/dL (8.5-10.1); CHLORIDE 107 mmol/L (98-107); CO2 28 mmol/L (21-32); GLUCOSE,RANDOM 88 mg/dL (74-106); POTASSIUM 4.3 mmol/L (3.5-5.1); SGOT/AST 16 U/L (15-37); SGPT/ALT 16 U/L (12-78); SODIUM 141 mmol/L (136-145)
[2017-12-26 10:17] LABS: ALK PHOS 73 U/L (45-117); BILIRUBIN,TOTAL 0.2 mg/dL (0.2-1.0); CREATININE 0.5 mg/dL (0.55-1.02); TOT PROT 6.5 g/dl (6.4-8.2)
--- NOTE | 2017-12-26 13:09 | CONSULT ---
[facility] Psychiatric Consult - Data Date of interview: 12/26/17 Admission source: Self-referred Identifying data: Ms Thomas is a 22 years old single female, unemployed , domiciled seeking detox treatment for opioid Substance Abuse History: Reports history of heroin use Medical History: Significant for history of multiple surgeries( fracture of nasal bones,torn rotator cuff of right shoulder and microdiscectomy in 2016. Psychiatric History: Reports that her only psychiatric contact was in July 2017 when she was admitted to [facility] for inpatient substance abuse treatment. She saw facility staff psychiatrist and was prescribed Seroquel and Buspar for anxiety. 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 Patient denies history of psychiatric hospitalizations. During a previous admission in this facility in Oct 2017, she told Dr Marcelo she stopped taking these medications 4-6 weeks ago. According to pharmacy claims, scripts for Lexapro 5 mg/day filled on 11/17/17, Klonopin 2 mg/ day filled on 11/12/17. Patient was confronted about these prescriptions and said she never took them. Denies history of suicide attempts. At present, reports doing well but sleeping poorly Physical/Sexual Abuse/Trauma History: Denies history of emotional, physical or sexual abuse s well as DV relationship Additional Comment: Reports history of one misdemear arrests for DWI and resisting arrest.Denies being on probation Mental Status Exam - Mental Status Exam Alert and Oriented to: Time, Place, Person Cognitive Function: Fair Patient Appearance: Well Groomed Mood: Hopeful, Euthymic Patient Behavior: Cooperative Speech Pattern: Clear Voice Loudness: Normal Thought Process: Intact, Goal Oriented Thought Disorder: Not Present Hallucinations: None Suicidal Ideation: Denies Homicidal Ideation: Denies Insight/Judgement: Poor Sleep: Poorly Appetite: Fair Muscle strength/Tone: Normal Gait/Station: Normal Psychiatric Findings - Problem List ([place] 1, 2,3) (1) Substance-induced sleep disorder Current Visit: Yes Status: Acute (2) Opioid dependence with withdrawal Current Visit: No Status: Acute - Initial Treatment Plan Initial Treatment Plan: 1) Start Ambien 5 mg po HS prn for insomnia. 2) Continue inpatient detoxification
--- NOTE | 2017-12-26 13:35 | PN ---
BHS COWS - Scale Resting Pulse: 0= [place] 80 or Below Sweatin= Chills/Flushing Restless Observation: 1= Difficult to Sit Still Pupil Size: 1= Pupils >than Normal Bone or Joint Aches: 2= Severe Diffuse Aches Runny Nose/ Eye Tearin= Nasal Congestion GI Upset > 30mins: 2= Nausea/Diarrhea Tremor Observation of Outstretched Hands: 1= Tremor [place], Not Seen Yawning Observation: 2= >3x During Session Anxiety or Irritability: 2=Irritable/Anxious Goose Flesh Skin: 0=Smooth Skin COWS Score: 13 S Progress Note (SOAP) Subjective: joint pain body ache sweat tremor restlessness anxiety trouble sleep at night Objective: 12/26/17 13:34 Vital Signs Temperature 97.5 F L 12/26/17 10:00 Pulse Rate 69 12/26/17 10:00 Respiratory Rate 18 12/26/17 10:00 Blood Pressure 99/66 12/26/17 10:00 O2 Sat by Pulse Oximetry (%) Laboratory Last Values WBC 4.6 K/mm3 (4.0-10.0) 12/26/17 06:00 RBC 4.01 M/mm3 (3.60-5.2) 12/26/17 06:00 Hgb 12.1 GM/dL (10.7-15.3) 12/26/17 06:00 Hct 35.2 % (32.4-45.2) 12/26/17 06:00 MCV 87.6 fl (80-96) 12/26/17 06:00 MCH 30.1 pg (25.7-33.7) 12/26/17 06:00 MCHC 34.4 g/dl (32.0-36.0) 12/26/17 06:00 RDW 13.2 % (11.6-15.6) 12/26/17 06:00 Plt Count 187 K/MM3 (134-434) 12/26/17 06:00 MPV 8.5 fl (7.5-11.1) 12/26/17 06:00 Sodium 141 mmol/L (136-145) 12/26/17 06:00 Potassium 4.3 mmol/L (3.5-5.1) 12/26/17 06:00 Chloride 107 mmol/L (98-107) 12/26/17 06:00 Carbon Dioxide 28 mmol/L (21-32) 12/26/17 06:00 Anion Gap 6 (8-16) L 12/26/17 06:00 BUN 8 mg/dL (7-18) 12/26/17 06:00 Creatinine 0.5 mg/dL (0.55-1.02) L 12/26/17 06:00 Creat Clearance w eGFR > 60 (>60) 12/26/17 06:00 Random Glucose 88 mg/dL (74-106) 12/26/17 06:00 Calcium 8.6 mg/dL (8.5-10.1) 12/26/17 06:00 Total Bilirubin 0.2 mg/dL (0.2-1.0) D 12/26/17 06:00 AST 16 U/L (15-37) 12/26/17 06:00 ALT 16 U/L (12-78) 12/26/17 06:00 Alkaline Phosphatase 73 U/L (45-117) 12/26/17 06:00 Total Protein 6.5 g/dl (6.4-8.2) 12/26/17 06:00 Albumin 3.7 g/dl (3.4-5.0) 12/26/17 06:00 Urine Color Yellow 12/25/17 08:00 Urine Appearance Cloudy 12/25/17 08:00 Urine pH 5.0 (5.0-8.0) 12/25/17 08:00 Ur Specific [place] 1.023 (1.001-1.035) 12/25/17 08:00 Urine Protein Negative (NEGATIVE) 12/25/17 08:00 Urine Glucose (UA) Negative (NEGATIVE) 12/25/17 08:00 Urine Ketones Negative (NEGATIVE) 12/25/17 08:00 Urine Blood 1+ (NEGATIVE) H 12/25/17 08:00 Urine Nitrite Negative (NEGATIVE) 12/25/17 08:00 Urine Bilirubin Negative (<2.0 mg/dL) 12/25/17 08:00 Urine Urobilinogen 2.0 mg/dL (0.2-1.0) H 12/25/17 08:00 Ur Leukocyte Esterase Trace (NEGATIVE) 12/25/17 08:00 Urine WBC (Auto) 4 /hpf (3-5) 12/25/17 08:00 Urine RBC (Auto) 12 /hpf (0-3) 12/25/17 08:00 Ur Epithelial Cells Few /HPF (FEW) 12/25/17 08:00 Urine Mucus Rare 12/25/17 08:00 RPR Titer Nonreactive (NONREACTIVE) 12/26/17 06:00 HIV 1&2 Antibody Screen Negative 12/26/17 08:00 HIV P24 Antigen Negative 12/26/17 08:00 lab noted Assessment: 12/26/17 13:35 withdrawal sx Plan: continue detox
[2017-12-26] MEDS: ZOLPIDEM TARTRATE 5 MG TABLET PO PRN (22:13)
[2017-12-26] MEDS: THIAMINE HCL 100 MG TABLET (FP) PO SCH (22:13)
[2017-12-27] MEDS ORDERED: METHADONE HCL 5 MG TABLET (FOR DETOX USE ONLY) PO ONE (10:00)
[2017-12-27] MEDS: diazePAM 5 MG TABLET PO PRN ×3 (10:08→22:10)
[2017-12-27] MEDS: BACITRACIN 0.9 GM PACKET TP SCH ×2 (10:08→22:10)
[2017-12-27] MEDS: PRENATAL VITAMINS W/ FOLIC ACID TABLET (FP) PO SCH (10:09)
--- NOTE | 2017-12-27 10:26 | PN ---
BHS COWS - Scale Resting Pulse: 0= [place] 80 or Below Sweatin= Chills/Flushing Restless Observation: 1= Difficult to Sit Still Pupil Size: 2= Moderately Dilated Bone or Joint Aches: 1= Mild Discomfort Runny Nose/ Eye Tearin= Nasal Congestion GI Upset > 30mins: 1= Stomach Cramp Tremor Observation of Outstretched Hands: 1= Tremor [place], Not Seen Yawning Observation: 2= >3x During Session Anxiety or Irritability: 2=Irritable/Anxious Goose Flesh Skin: 0=Smooth Skin COWS Score: 12 BHS Progress Note (SOAP) Subjective: joint pain body ache sweat tremor anxiety restlessness trouble sleep at night Objective: 12/27/17 10:26 Vital Signs Temperature 97.7 F 12/27/17 09:41 Pulse Rate 61 12/27/17 09:41 Respiratory Rate 18 12/27/17 09:41 Blood Pressure 130/85 12/27/17 09:41 O2 Sat by Pulse Oximetry (%) Laboratory Last Values WBC 4.6 K/mm3 (4.0-10.0) 12/26/17 06:00 RBC 4.01 M/mm3 (3.60-5.2) 12/26/17 06:00 Hgb 12.1 GM/dL (10.7-15.3) 12/26/17 06:00 Hct 35.2 % (32.4-45.2) 12/26/17 06:00 MCV 87.6 fl (80-96) 12/26/17 06:00 MCH 30.1 pg (25.7-33.7) 12/26/17 06:00 MCHC 34.4 g/dl (32.0-36.0) 12/26/17 06:00 RDW 13.2 % (11.6-15.6) 12/26/17 06:00 Plt Count 187 K/MM3 (134-434) 12/26/17 06:00 MPV 8.5 fl (7.5-11.1) 12/26/17 06:00 Sodium 141 mmol/L (136-145) 12/26/17 06:00 Potassium 4.3 mmol/L (3.5-5.1) 12/26/17 06:00 Chloride 107 mmol/L (98-107) 12/26/17 06:00 Carbon Dioxide 28 mmol/L (21-32) 12/26/17 06:00 Anion Gap 6 (8-16) L 12/26/17 06:00 BUN 8 mg/dL (7-18) 12/26/17 06:00 Creatinine 0.5 mg/dL (0.55-1.02) L 12/26/17 06:00 Creat Clearance w eGFR > 60 (>60) 12/26/17 06:00 Random Glucose 88 mg/dL (74-106) 12/26/17 06:00 Calcium 8.6 mg/dL (8.5-10.1) 12/26/17 06:00 Total Bilirubin 0.2 mg/dL (0.2-1.0) D 12/26/17 06:00 AST 16 U/L (15-37) 12/26/17 06:00 ALT 16 U/L (12-78) 12/26/17 06:00 Alkaline Phosphatase 73 U/L (45-117) 12/26/17 06:00 Total Protein 6.5 g/dl (6.4-8.2) 12/26/17 06:00 Albumin 3.7 g/dl (3.4-5.0) 12/26/17 06:00 Urine Color Yellow 12/25/17 08:00 Urine Appearance Cloudy 12/25/17 08:00 Urine pH 5.0 (5.0-8.0) 12/25/17 08:00 Ur Specific [place] 1.023 (1.001-1.035) 12/25/17 08:00 Urine Protein Negative (NEGATIVE) 12/25/17 08:00 Urine Glucose (UA) Negative (NEGATIVE) 12/25/17 08:00 Urine Ketones Negative (NEGATIVE) 12/25/17 08:00 Urine Blood 1+ (NEGATIVE) H 12/25/17 08:00 Urine Nitrite Negative (NEGATIVE) 12/25/17 08:00 Urine Bilirubin Negative (<2.0 mg/dL) 12/25/17 08:00 Urine Urobilinogen 2.0 mg/dL (0.2-1.0) H 12/25/17 08:00 Ur Leukocyte Esterase Trace (NEGATIVE) 12/25/17 08:00 Urine WBC (Auto) 4 /hpf (3-5) 12/25/17 08:00 Urine RBC (Auto) 12 /hpf (0-3) 12/25/17 08:00 Ur Epithelial Cells Few /HPF (FEW) 12/25/17 08:00 Urine Mucus Rare 12/25/17 08:00 RPR Titer Nonreactive (NONREACTIVE) 12/26/17 06:00 HIV 1&2 Antibody Screen Negative 12/26/17 08:00 HIV P24 Antigen Negative 12/26/17 08:00 lab noted Assessment: 12/27/17 10:27 withdrawal sx Plan: continue detox
[2017-12-27] MEDS: ZOLPIDEM TARTRATE 5 MG TABLET PO PRN (22:10)
[2017-12-27] MEDS: THIAMINE HCL 100 MG TABLET (FP) PO SCH (22:11)
[2017-12-28] MEDS ORDERED: METHADONE HCL 5 MG TABLET (FOR DETOX USE ONLY) PO ONE (10:00)
[2017-12-28] MEDS: PRENATAL VITAMINS W/ FOLIC ACID TABLET (FP) PO SCH (10:25)
[2017-12-28] MEDS: BACITRACIN 0.9 GM PACKET TP SCH (10:25)
[2017-12-28] MEDS: diazePAM 5 MG TABLET PO PRN (10:27)
[2017-12-28 10:42] VITALS: BP 104/61; PULSE 78; TEMP 97.9
--- NOTE | 2017-12-28 10:45 | PN ---
BHS Progress Note (SOAP) Subjective: joint pain body ache tremor sweat anxiety restlessness gi distress Objective: 12/28/17 10:44 Vital Signs Temperature 97.9 F 12/28/17 10:00 Pulse Rate 78 12/28/17 10:00 Respiratory Rate 20 12/28/17 10:00 Blood Pressure 104/61 12/28/17 10:00 O2 Sat by Pulse Oximetry (%) Laboratory Last Values WBC 4.6 K/mm3 (4.0-10.0) 12/26/17 06:00 RBC 4.01 M/mm3 (3.60-5.2) 12/26/17 06:00 Hgb 12.1 GM/dL (10.7-15.3) 12/26/17 06:00 Hct 35.2 % (32.4-45.2) 12/26/17 06:00 MCV 87.6 fl (80-96) 12/26/17 06:00 MCH 30.1 pg (25.7-33.7) 12/26/17 06:00 MCHC 34.4 g/dl (32.0-36.0) 12/26/17 06:00 RDW 13.2 % (11.6-15.6) 12/26/17 06:00 Plt Count 187 K/MM3 (134-434) 12/26/17 06:00 MPV 8.5 fl (7.5-11.1) 12/26/17 06:00 Sodium 141 mmol/L (136-145) 12/26/17 06:00 Potassium 4.3 mmol/L (3.5-5.1) 12/26/17 06:00 Chloride 107 mmol/L (98-107) 12/26/17 06:00 Carbon Dioxide 28 mmol/L (21-32) 12/26/17 06:00 Anion Gap 6 (8-16) L 12/26/17 06:00 BUN 8 mg/dL (7-18) 12/26/17 06:00 Creatinine 0.5 mg/dL (0.55-1.02) L 12/26/17 06:00 Creat Clearance w eGFR > 60 (>60) 12/26/17 06:00 Random Glucose 88 mg/dL (74-106) 12/26/17 06:00 Calcium 8.6 mg/dL (8.5-10.1) 12/26/17 06:00 Total Bilirubin 0.2 mg/dL (0.2-1.0) D 12/26/17 06:00 AST 16 U/L (15-37) 12/26/17 06:00 ALT 16 U/L (12-78) 12/26/17 06:00 Alkaline Phosphatase 73 U/L (45-117) 12/26/17 06:00 Total Protein 6.5 g/dl (6.4-8.2) 12/26/17 06:00 Albumin 3.7 g/dl (3.4-5.0) 12/26/17 06:00 Urine Color Yellow 12/25/17 08:00 Urine Appearance Cloudy 12/25/17 08:00 Urine pH 5.0 (5.0-8.0) 12/25/17 08:00 Ur Specific [place] 1.023 (1.001-1.035) 12/25/17 08:00 Urine Protein Negative (NEGATIVE) 12/25/17 08:00 Urine Glucose (UA) Negative (NEGATIVE) 12/25/17 08:00 Urine Ketones Negative (NEGATIVE) 12/25/17 08:00 Urine Blood 1+ (NEGATIVE) H 12/25/17 08:00 Urine Nitrite Negative (NEGATIVE) 12/25/17 08:00 Urine Bilirubin Negative (<2.0 mg/dL) 12/25/17 08:00 Urine Urobilinogen 2.0 mg/dL (0.2-1.0) H 12/25/17 08:00 Ur Leukocyte Esterase Trace (NEGATIVE) 12/25/17 08:00 Urine WBC (Auto) 4 /hpf (3-5) 12/25/17 08:00 Urine RBC (Auto) 12 /hpf (0-3) 12/25/17 08:00 Ur Epithelial Cells Few /HPF (FEW) 12/25/17 08:00 Urine Mucus Rare 12/25/17 08:00 RPR Titer Nonreactive (NONREACTIVE) 12/26/17 06:00 HIV 1&2 Antibody Screen Negative 12/26/17 08:00 HIV P24 Antigen Negative 12/26/17 08:00 lab noted Assessment: 12/28/17 10:44 withdrawal sx Plan: continue detox
--- NOTE | 2017-12-28 12:11 | DS ---
[facility] Detox Discharge Summary Admission Date: 12/25/17 Discharge Date: 12/28/17 - History Present History: Opioid Dependence Additional Comments: 22 years old female insists to terminate opiate detox regimen patient is alert oriented x 3 no acute distress denies homicidal denies suicidal no self destructive behavior patient agrees to follow up with care provider at [facility] "someone pick me up" health teaching on opioid addiction and consequences - Physical Exam Results Vital Signs: Vital Signs Temperature 97.9 F 12/28/17 10:00 Pulse Rate 78 12/28/17 10:00 Respiratory Rate 20 12/28/17 10:00 Blood Pressure 104/61 12/28/17 10:00 O2 Sat by Pulse Oximetry (%) Pertinent Admission Physical Exam Findings: withdrawal sx Vital Signs Temperature 97.9 F 12/28/17 10:00 Pulse Rate 78 12/28/17 10:00 Respiratory Rate 20 12/28/17 10:00 Blood Pressure 104/61 12/28/17 10:00 O2 Sat by Pulse Oximetry (%) Laboratory Last Values WBC 4.6 K/mm3 (4.0-10.0) 12/26/17 06:00 RBC 4.01 M/mm3 (3.60-5.2) 12/26/17 06:00 Hgb 12.1 GM/dL (10.7-15.3) 12/26/17 06:00 Hct 35.2 % (32.4-45.2) 12/26/17 06:00 MCV 87.6 fl (80-96) 12/26/17 06:00 MCH 30.1 pg (25.7-33.7) 12/26/17 06:00 MCHC 34.4 g/dl (32.0-36.0) 12/26/17 06:00 RDW 13.2 % (11.6-15.6) 12/26/17 06:00 Plt Count 187 K/MM3 (134-434) 12/26/17 06:00 MPV 8.5 fl (7.5-11.1) 12/26/17 06:00 Sodium 141 mmol/L (136-145) 12/26/17 06:00 Potassium 4.3 mmol/L (3.5-5.1) 12/26/17 06:00 Chloride 107 mmol/L (98-107) 12/26/17 06:00 Carbon Dioxide 28 mmol/L (21-32) 12/26/17 06:00 Anion Gap 6 (8-16) L 12/26/17 06:00 BUN 8 mg/dL (7-18) 12/26/17 06:00 Creatinine 0.5 mg/dL (0.55-1.02) L 12/26/17 06:00 Creat Clearance w eGFR > 60 (>60) 12/26/17 06:00 Random Glucose 88 mg/dL (74-106) 12/26/17 06:00 Calcium 8.6 mg/dL (8.5-10.1) 12/26/17 06:00 Total Bilirubin 0.2 mg/dL (0.2-1.0) D 12/26/17 06:00 AST 16 U/L (15-37) 12/26/17 06:00 ALT 16 U/L (12-78) 12/26/17 06:00 Alkaline Phosphatase 73 U/L (45-117) 12/26/17 06:00 Total Protein 6.5 g/dl (6.4-8.2) 12/26/17 06:00 Albumin 3.7 g/dl (3.4-5.0) 12/26/17 06:00 Urine Color Yellow 12/25/17 08:00 Urine Appearance Cloudy 12/25/17 08:00 Urine pH 5.0 (5.0-8.0) 12/25/17 08:00 Ur Specific [place] 1.023 (1.001-1.035) 12/25/17 08:00 Urine Protein Negative (NEGATIVE) 12/25/17 08:00 Urine Glucose (UA) Negative (NEGATIVE) 12/25/17 08:00 Urine Ketones Negative (NEGATIVE) 12/25/17 08:00 Urine Blood 1+ (NEGATIVE) H 12/25/17 08:00 Urine Nitrite Negative (NEGATIVE) 12/25/17 08:00 Urine Bilirubin Negative (<2.0 mg/dL) 12/25/17 08:00 Urine Urobilinogen 2.0 mg/dL (0.2-1.0) H 12/25/17 08:00 Ur Leukocyte Esterase Trace (NEGATIVE) 12/25/17 08:00 Urine WBC (Auto) 4 /hpf (3-5) 12/25/17 08:00 Urine RBC (Auto) 12 /hpf (0-3) 12/25/17 08:00 Ur Epithelial Cells Few /HPF (FEW) 12/25/17 08:00 Urine Mucus Rare 12/25/17 08:00 RPR Titer Nonreactive (NONREACTIVE) 12/26/17 06:00 HIV 1&2 Antibody Screen Negative 12/26/17 08:00 HIV P24 Antigen Negative 12/26/17 08:00 lab noted - Treatment Hospital Course: Detox Protocol Followed, Responded well Patient has Accepted a Rehab Referral to: [facility] - Medication Discharge Medications: Ambulatory Orders NK [No Known Home Medication] 08/04/16 - Diagnosis (1) Opioid dependence with withdrawal Current Visit: Yes Status: Acute - AMA Did Patient Leave Against Medical Advice: Yes
[2017-12-29] MEDS ORDERED: METHADONE HCL 10 MG TABLET (FOR DETOX USE ONLY) PO ONE (10:00)
[2017-12-30] MEDS ORDERED: METHADONE HCL 5 MG TABLET (FOR DETOX USE ONLY) PO ONE (06:00)
== END 2017-12-28 11:45 | disposition left against medical advice (07) | DRG 770 ==
LOC: YASAS 15:49 → Y6N 17:46
PROVIDERS: ADMIT Internal Medicine; ATTEND Internal Medicine
PROC: HZ2ZZZZ Detoxification Services for Substance Abuse Treatment (ICD-10-PCS; principal; 2017-12-25)
DX: F11.23 Opioid dependence with withdrawal (principal); F13.230 Sedative, hypnotic or anxiolytic dependence with withdrawal, uncomplicated; F19.282 Other psychoactive substance dependence with psychoactive substance-induced sleep disorder; F19.24 Other psychoactive substance dependence with psychoactive substance-induced mood disorder; G47.00 Insomnia, unspecified; E86.0 Dehydration; R63.4 Abnormal weight loss; Z68.21 Body mass index [BMI] 21.0-21.9, adult
CPT/HCPCS: 36415; 80053; 81003; 81015; 85027; 86593; 87389; 93005; 93010

== ENCOUNTER 2018-05-04 18:01 | Inpatient (IN) | payer OTHER ==
[2018-05-04 18:20] VITALS: BMI 21.5
[2018-05-04] MEDS ORDERED: MELATONIN 5 MG TABLETS PO PRN (22:00)
[2018-05-04] MEDS ORDERED: NICOTINE POLACRILEX 2 MG GUM BUC PRN (22:18)
[2018-05-04] MEDS ORDERED: MAGNESIUM HYDROX 2400MG/30ML ORAL SUSPENSION 30 ML CUP PO PRN (22:18)
[2018-05-04] MEDS ORDERED: P-EPHED 60MG/TRIPROLIDI 2.5MG TABLET PO PRN (22:18)
[2018-05-04] MEDS ORDERED: ACETAMINOPHEN 325 MG TABLET (FP) PO PRN (22:18)
[2018-05-04] MEDS ORDERED: guaiFENesin/D-METHORPHAN HB 10 ML UNIT-DOSE CUPS PO PRN (22:18)
[2018-05-04] MEDS ORDERED: MAGNESIUM CITRATE 300 ML BOTTLE PO PRN (22:18)
[2018-05-04] MEDS ORDERED: IBUPROFEN 400 MG TABLET (FP) PO PRN (22:18)
[2018-05-04] MEDS ORDERED: LOPERAMIDE HCL 2 MG CAPSULE PO PRN (22:18)
[2018-05-04] MEDS ORDERED: MAG HYDROX/AL HYDROX/SIMETH 30 ML UNIT-DOSE CUP PO PRN (22:18)
[2018-05-04] MEDS ORDERED: METHADONE HCL 10 MG TABLET (FOR DETOX USE ONLY) PO ONE ×2 (22:18→23:00)
[2018-05-04] MEDS ORDERED: MENTHOL/PHENOL 1 EACH UD MM PRN (22:18)
--- NOTE | 2018-05-04 22:18 | HP ---
COWS - Scale Resting Pulse: 1= [place] 81-100 Sweatin=Flushed/Facial Moisture Restless Observation: 1= Difficult to Sit Still Pupil Size: 1= Pupils >than Normal Bone or Joint Aches: 1= Mild Discomfort Runny Nose/ Eye Tearin= Runny Nose/Eyes GI Upset > 30mins: 1= Stomach Cramp Tremor Observation: 0= None Yawning Observation: 2= >3x During Session Anxiety or Irritability: 2=Irritable/Anxious Goose Flesh Skin: 3=Piloerection COWS Score: 16 Admission ROS S - HPI Chief Complaint: opiod withdrawal symptoms Allergies/Adverse Reactions: Allergies Allergy/AdvReac Type Severity Reaction Status Date / Time cyclobenzaprine Allergy Intermediate Hives Verified 05/04/18 20:13 [From Flexeril] History of Present Illness: 23 yo female with hx of IV heroin and nicotine dependence is dependence is here seeking detox. Last detox at [facility] two months ago. Denies suicidal / homicidal ideation or suicide attempts. Denies hx of overdose, blackouts or seizures. Reports no significant period of sobriety. Exam Limitations: No Limitations - Ebola screening Have you been sick,other than usual withdrawal symptoms: No - Review of Systems Constitutional: Chills, Changes in sleep EENT: reports: Nose Congestion Respiratory: reports: No Symptoms reported Cardiac: reports: No Symptoms Reported GI: reports: Poor Appetite, Poor Fluid Intake, Abdominal cramping : reports: No Symptoms Reported Musculoskeletal: reports: Back Pain Integumentary: reports: Sweating Neuro: reports: Headache Endocrine: reports: Increased Thirst Hematology: reports: No Symptoms Reported Psychiatric: reports: Orientated x3, Anxious Other Systems: Reviewed and Negative Patient History - Patient Medical History Hx Anemia: No Hx Asthma: No Hx Chronic Obstructive Pulmonary Disease (COPD): No Hx Cancer: No Hx Cardiac Disorders: No Hx Congestive Heart Failure: No Hx Hypertension: No Hx Hypercholesterolemia: No Hx Pacemaker: No HX Cerebrovascular Accident: No Hx Seizures: No Hx Dementia: No Hx Diabetes: No Hx Gastrointestinal Disorders: No Hx Liver Disease: No Hx Genitourinary Disorders: No Hx Sexually Transmitted Disorders: No Hx Renal Disease (ESRD): No Hx Thyroid Disease: No Hx Human Immunodeficiency Virus (HIV): No (Last Tested: 09/2017.) Hx Hepatitis C: No (Never Tested.) Hx Depression: No (No previous treatment.) Hx Suicide Attempt: No (PAITENT DENIES CURRENT SI / HI.) Hx Bipolar Disorder: No Hx Schizophrenia: No - Patient Surgical History Past Surgical History: Yes Hx Neurologic Surgery: No Hx Cataract Extraction: No Hx Cardiac Surgery: No Hx Lung Surgery: No Hx Breast Surgery: No Hx Breast Biopsy: No Hx Abdominal Surgery: No Hx Appendectomy: No Hx Cholecystectomy: No Hx Genitourinary Surgery: No Hx Section: No Hx Orthopedic Surgery: Yes (MICRODISCECTOMY 12/2015; ROTATOR CUFF REPAIR (07/2016 ).) Hx Hysterectomy: No Other Surgical History: nasal fx in 07/2016 Anesthesia Reaction: No - PPD History Previous Implant?: Yes Documented Results: Negative w/proof Date: 09/19/17 Results: 0 mm PPD to be Administered?: No - Reproductive History Patient is a Female of Child Bearing Age (11 -55 yrs old): Yes Last Menstrual Period: 03/06/18 Patient : No - Smoking Cessation Smoking history: Former smoker Have you smoked in the past 12 months: Yes Aproximately how many cigarettes per day: 2 If you are a former smoker, when did you quit?: 1 month AGO Cigars Per Day: 0 Hx Chewing Tobacco Use: No Initiated information on smoking cessation: Yes 'Breaking Loose' booklet given: 05/04/18 - Substance & Tx. History Hx Alcohol Use: Yes Hx Substance Use: Yes Substance Use Type: Heroin Hx Substance Use Treatment: Yes ([facility] two months ago ) - Substances Abused Heroin Route: Injection Frequency: Daily Amount used: 30 bags Age of first use: 20 Date of Last Use: 05/04/18 Family Disease History - Family Disease History Family Disease History: [place]: Grandparent Admission Physical Exam BHS - Vital Signs Vital Signs: Vital Signs - 24 hr 05/04/18 18:18 Temperature 97 F L Pulse Rate 96 H Respiratory 18 Rate Blood Pressure 108/70 - Physical General Appearance: Yes: Disheveled, Thin, Sweating, Anxious HEENTM: Yes: EOMI, Hearing grossly Normal, Normal ENT Inspection, Normocephalic , Normal Voice, KRISTEN, Pharynx Normal, Tm's normal Respiratory: Yes: Chest Non-Tender, Lungs Clear, Normal Breath Sounds, No Respiratory Distress, No Accessory Muscle Use Neck: Yes: Within Normal Limits Breast: Yes: Breast Exam Deferred Cardiology: Yes: Regular Rhythm, Regular Rate Abdominal: Yes: Within Normal Limits Genitourinary: Yes: Within Normal Limits Back: Yes: Normal Inspection Musculoskeletal: Yes: Within Normal Limits Extremities: Yes: Normal Capillary Refill, Normal Inspection, Normal Range of Motion, Non-Tender 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: Yes: 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, Fully Oriented, Alert, Motor Strength 5/5, Depressed Affect Integumentary: Yes: Normal Color, Warm, Track Elliott (both forearms, no infection present) Lymphatic: Yes: Within Normal Limits - Diagnostic (1) Nicotine dependence Current Visit: Yes Status: Acute Qualifiers: Nicotine product type: cigarettes Substance use status: uncomplicated Qualified Code(s): F17.210 - Nicotine dependence, cigarettes, uncomplicated (2) Opioid dependence with withdrawal Current Visit: Yes Status: Acute (3) Track elliott due to intravenous drug abuse Current Visit: Yes Status: Acute Cleared for Admission [facility] - Detox or Rehab [facility] Level of Care: Medically Managed Detox Regimen/Protocol: Methadone [facility] Breath Alcohol Content Breath Alcohol Content: 0 Urine Pregancy Test - Result Urine Test Results: Negative- NO Line Present Urine Drug Screen - Results Drug Screen Negative: No Urine Drug Screen Results: OPI-Opiates
[2018-05-04] MEDS: diazePAM 5 MG TABLET PO PRN (23:20)
[2018-05-05 00:07] LABS: URINE APPEARANCE CLOUDY; URINE BILIRUBIN NEGATIVE (<2.0 mg/dL); URINE COLOR YELLOW; URINE GLUCOSE (UA) NEGATIVE (NEGATIVE); URINE KETONE NEGATIVE (NEGATIVE); URINE NITRITE NEGATIVE (NEGATIVE); URINE PROTEIN NEGATIVE (NEGATIVE); URINE UROBILINOGEN NEGATIVE mg/dL (0.2-1.0)
[2018-05-05 00:22] LABS: URINE LEUK ESTERASE 2+ (NEGATIVE)
[2018-05-05 00:26] LABS: EPI CELLS MANY /HPF (FEW); URINE BACTERIA RARE /hpf (NONE SEEN); URINE MUCUS FEW
[2018-05-05] MEDS ORDERED: METHADONE HCL 10 MG TABLET (FOR DETOX USE ONLY) PO ONE (10:00)
[2018-05-05 10:25] LABS: HEMATOCRIT 34.9 % (32.4-45.2); HEMOGLOBIN 11.9 GM/dL (10.7-15.3); MCH 29.1 pg (25.7-33.7); MEAN CELL VOLUME 85.5 fl (80-96); MEAN PLT VOLUME 7.9 fl (7.5-11.1); PLATELET COUNT 169 K/MM3 (134-434); RBC 4.09 M/mm3 (3.60-5.2); RDW 14.2 % (11.6-15.6); WHITE BLOOD COUNT 5.2 K/mm3 (4.0-10.0)
[2018-05-05] MEDS: PRENATAL VITAMINS W/ FOLIC ACID TABLET (FP) PO SCH (10:31)
[2018-05-05] MEDS: diazePAM 5 MG TABLET PO PRN ×2 (10:32→22:13)
--- NOTE | 2018-05-05 11:43 | PN ---
BHS COWS - Scale Resting Pulse: 0= [place] 80 or Below Sweatin= Chills/Flushing Restless Observation: 1= Difficult to Sit Still Pupil Size: 1= Pupils >than Normal Bone or Joint Aches: 2= Severe Diffuse Aches Runny Nose/ Eye Tearin= Nasal Congestion GI Upset > 30mins: 2= Nausea/Diarrhea Tremor Observation of Outstretched Hands: 2= Slight Tremor Visible Yawning Observation: 2= >3x During Session Anxiety or Irritability: 2=Irritable/Anxious Goose Flesh Skin: 0=Smooth Skin COWS Score: 14 BHS Progress Note (SOAP) Subjective: joints pain body aches tremor anxiousness trouble sleep at night Objective: 05/05/18 11:42 Vital Signs Temperature 97.7 F 05/05/18 09:30 Pulse Rate 72 05/05/18 09:30 Respiratory Rate 18 05/05/18 09:30 Blood Pressure 102/71 05/05/18 09:30 O2 Sat by Pulse Oximetry (%) Laboratory Last Values WBC 5.2 K/mm3 (4.0-10.0) 05/05/18 07:30 RBC 4.09 M/mm3 (3.60-5.2) 05/05/18 07:30 Hgb 11.9 GM/dL (10.7-15.3) 05/05/18 07:30 Hct 34.9 % (32.4-45.2) 05/05/18 07:30 MCV 85.5 fl (80-96) 05/05/18 07:30 MCH 29.1 pg (25.7-33.7) 05/05/18 07:30 MCHC 34.0 g/dl (32.0-36.0) 05/05/18 07:30 RDW 14.2 % (11.6-15.6) 05/05/18 07:30 Plt Count 169 K/MM3 (134-434) 05/05/18 07:30 MPV 7.9 fl (7.5-11.1) 05/05/18 07:30 Urine Color Yellow 05/04/18 Unknown Urine Appearance Cloudy 05/04/18 Unknown Urine pH 6.0 (5.0-8.0) 05/04/18 Unknown Ur Specific [place] 1.016 (1.001-1.035) 05/04/18 Unknown Urine Protein Negative (NEGATIVE) 05/04/18 Unknown Urine Glucose (UA) Negative (NEGATIVE) 05/04/18 Unknown Urine Ketones Negative (NEGATIVE) 05/04/18 Unknown Urine Blood Negative (NEGATIVE) 05/04/18 Unknown Urine Nitrite Negative (NEGATIVE) 05/04/18 Unknown Urine Bilirubin Negative (<2.0 mg/dL) 05/04/18 Unknown Urine Urobilinogen Negative mg/dL (0.2-1.0) 05/04/18 Unknown Ur Leukocyte Esterase 2+ (NEGATIVE) H 05/04/18 Unknown Urine WBC (Auto) 6 /hpf (3-5) 05/04/18 Unknown Urine RBC (Auto) 2 /hpf (0-3) 05/04/18 Unknown Ur Epithelial Cells Many /HPF (FEW) 05/04/18 Unknown Urine Bacteria Rare /hpf (NONE SEEN) 05/04/18 Unknown Urine Mucus Few 05/04/18 Unknown lab noted Assessment: 05/05/18 11:42 withdrawal sx Plan: continue detox increase oral fluid
--- NOTE | 2018-05-05 11:56 | EKG ---
Test Reason : Blood Pressure : / mmHG Vent. Rate : 072 BPM Atrial Rate : 072 BPM P-R Int : 152 ms QRS Dur : 084 ms QT Int : 388 ms P-R-T Axes : 043 076 060 degrees QTc Int : 424 ms NORMAL SINUS RHYTHM WITH SINUS ARRHYTHMIA NORMAL ECG WHEN COMPARED WITH ECG OF 25-DEC-2017 20:38, NO SIGNIFICANT CHANGE WAS FOUND Confirmed by JOEL BETANCOURT MD ([id number]) on 05/05/2018 11:55:32 AM Referred By: Confirmed By:JOEL BETANCOURT MD
[2018-05-05 12:30] LABS: CHLORIDE 104 mmol/L (98-107); POTASSIUM 4.3 mmol/L (3.5-5.1); SODIUM 141 mmol/L (136-145)
[2018-05-05 12:57] LABS: ALBUMIN 3.6 g/dl (3.4-5.0); ALK PHOS 77 U/L (45-117); ANION GAP 8 MMOL/L (8-16); BILIRUBIN,TOTAL 0.5 mg/dL (0.2-1.0); BLOOD UREA NITROGEN 7 mg/dL (7-18); CALCIUM 8.8 mg/dL (8.5-10.1); CO2 29 mmol/L (21-32); CREATININE 0.5 mg/dL (0.55-1.02); GLUCOSE,RANDOM 91 mg/dL (74-106); SGOT/AST 26 U/L (15-37); SGPT/ALT 22 U/L (12-78); TOT PROT 6.9 g/dl (6.4-8.2)
--- NOTE | 2018-05-05 15:42 | CONSULT ---
[facility] Psychiatric Consult - Data Date of interview: 05/05/18 Admission source: [facility] Identifying data: Patient is a 23 year old single female, unemployed, domiciled and financially supported by family. This is one of multiple admissions for patient. Pt. admitted to for opioid dependence. Substance Abuse History: Smoking Cessation. Smoking history: Former smoker. Have you smoked in the past 12 months: Yes. Aproximately how many cigarettes per day: 2. If you are a former smoker, when did you quit?: 1 month AGO. Cigars Per Day: 0. Hx Chewing Tobacco Use: No. Initiated information on smoking cessation: Yes. 'Breaking Loose' booklet given: 05/04/18. - Substance & Tx. History. Hx Alcohol Use: Yes. Hx Substance Use: Yes. Substance Use Type : Heroin. Hx Substance Use Treatment: Yes ([facility] two months ago ). - Substances Abused. Heroin. Route: Injection. Frequency: Daily. Amount used: 30 bags. Age of first use: 20. Date of Last Use: 05/04/18 Medical History: MICRODISCECTOMY 12/2015; ROTATOR CUFF REPAIR (07/2016). Psychiatric History: Patient denies h/o psychiatric hospitalization. Pt. minimizing information. States she was receiving suboxone and klonopin from her outpatient psychiarist approximately 3 months ago. As per pharmacy claims patient has been prescribed seroquel, buspar, and lexapro. Pt. requesting a sleep aid. As per records, patient has been prescribed ambien 5mg while in detox. Physical/Sexual Abuse/Trauma History: denies. Mental Status Exam - Mental Status Exam Alert and Oriented to: Time, Place, Person Cognitive Function: Good Patient Appearance: Well Groomed Mood: Euthymic Affect: Appropriate Patient Behavior: Guarded, Cooperative Speech Pattern: Appropriate Voice Loudness: Moderately Soft/Quiet Thought Process: Intact, Goal Oriented Thought Disorder: Not Present Hallucinations: Denies Suicidal Ideation: Denies Homicidal Ideation: Denies Insight/Judgement: Poor Sleep: Poorly Appetite: Fair Muscle strength/Tone: Normal Gait/Station: Normal Psychiatric Findings - Problem List ([place] 1, 2,3) (1) Nicotine dependence Current Visit: Yes Status: Chronic Qualifiers: Nicotine product type: cigarettes Substance use status: uncomplicated Qualified Code(s): F17.210 - Nicotine dependence, cigarettes, uncomplicated (2) Opioid dependence with withdrawal Current Visit: Yes Status: Acute (3) Insomnia Current Visit: Yes Status: Acute - Initial Treatment Plan Initial Treatment Plan: Psychoeducation provided. Detoxification in progress. Ambien 5mg qhs prn ordered. Benefits and side effects discussed. Pt. made aware of the risk of parasomnia. Verbal consent given.
[2018-05-05] MEDS: ZOLPIDEM TARTRATE 5 MG TABLET PO PRN (22:13)
[2018-05-05] MEDS: THIAMINE HCL 100 MG TABLET (FP) PO SCH (22:13)
[2018-05-06] MEDS ORDERED: METHADONE HCL 5 MG TABLET (FOR DETOX USE ONLY) PO ONE (10:00)
[2018-05-06] MEDS: PRENATAL VITAMINS W/ FOLIC ACID TABLET (FP) PO SCH (10:41)
[2018-05-06] MEDS: diazePAM 5 MG TABLET PO PRN ×2 (10:52→22:08)
[2018-05-06] MEDS ORDERED: LIDOCAINE 5% TOPICAL PATCH TP ONE (11:37)
--- NOTE | 2018-05-06 11:38 | PN ---
BHS COWS - Scale Resting Pulse: 0= [place] 80 or Below Sweatin=Flushed/Facial Moisture Restless Observation: 1= Difficult to Sit Still Pupil Size: 1= Pupils >than Normal Bone or Joint Aches: 2= Severe Diffuse Aches Runny Nose/ Eye Tearin= Nasal Congestion GI Upset > 30mins: 1= Stomach Cramp Tremor Observation of Outstretched Hands: 0= None Yawning Observation: 0= None Anxiety or Irritability: 2=Irritable/Anxious Goose Flesh Skin: 0=Smooth Skin COWS Score: 10 BHS Progress Note (SOAP) Subjective: interrupted sleep, sweats, lbp Objective: 05/06/18 11:35 Vital Signs Temperature 98.1 F 05/06/18 06:00 Pulse Rate 67 05/06/18 06:00 Respiratory Rate 16 05/06/18 06:00 Blood Pressure 102/61 05/06/18 06:00 O2 Sat by Pulse Oximetry (%) Laboratory Tests 05/04/18 05/05/18 05/05/18 Unknown 07:30 07:30 WBC 5.2 RBC 4.09 Hgb 11.9 Hct 34.9 MCV 85.5 MCH 29.1 MCHC 34.0 RDW 14.2 Plt Count 169 MPV 7.9 Sodium Potassium Chloride Carbon Dioxide Anion Gap BUN Creatinine Creat Clearance w eGFR Random Glucose Calcium Total Bilirubin AST ALT Alkaline Phosphatase Total Protein Albumin Urine Color Yellow Urine Appearance Cloudy Urine pH 6.0 Ur Specific [place] 1.016 Urine Protein Negative Urine Glucose (UA) Negative Urine Ketones Negative Urine Blood Negative Urine Nitrite Negative Urine Bilirubin Negative Urine Urobilinogen Negative Ur Leukocyte Esterase 2+ H Urine WBC (Auto) 6 Urine RBC (Auto) 2 Ur Epithelial Cells Many Urine Bacteria Rare Urine Mucus Few RPR Titer HIV 1&2 Antibody Screen Negative HIV P24 Antigen Negative 05/05/18 05/05/18 07:30 07:30 WBC RBC Hgb Hct MCV MCH MCHC RDW Plt Count MPV Sodium 141 Potassium 4.3 Chloride 104 Carbon Dioxide 29 Anion Gap 8 BUN 7 Creatinine 0.5 L Creat Clearance w eGFR > 60 Random Glucose 91 Calcium 8.8 Total Bilirubin 0.5 AST 26 ALT 22 Alkaline Phosphatase 77 Total Protein 6.9 Albumin 3.6 Urine Color Urine Appearance Urine pH Ur Specific [place] Urine Protein Urine Glucose (UA) Urine Ketones Urine Blood Urine Nitrite Urine Bilirubin Urine Urobilinogen Ur Leukocyte Esterase Urine WBC (Auto) Urine RBC (Auto) Ur Epithelial Cells Urine Bacteria Urine Mucus RPR Titer Nonreactive HIV 1&2 Antibody Screen HIV P24 Antigen pt aox3 in nad lying in bed iririatable Assessment: 05/06/18 11:36 withdrawal sx's Plan: cont. detox increase fluids lidocaine patch
[2018-05-06] MEDS ORDERED: CYCLOBENZAPRINE HCL 5 MG TABLET PO SCH (14:00)
[2018-05-06] MEDS ORDERED: LIDOCAINE PATCH REMOVAL MC SCH (22:00)
[2018-05-06] MEDS: LIDOCAINE PATCH REMOVAL MC SCH (22:08)
[2018-05-06] MEDS: THIAMINE HCL 100 MG TABLET (FP) PO SCH (22:08)
[2018-05-06] MEDS: ZOLPIDEM TARTRATE 5 MG TABLET PO PRN (22:08)
[2018-05-06] MEDS: hydrOXYzine PAMOATE 50 MG CAPSULE (FP) PO PRN (22:08)
[2018-05-07] MEDS ORDERED: METHADONE HCL 5 MG TABLET (FOR DETOX USE ONLY) PO ONE (10:00)
[2018-05-07] MEDS: diazePAM 5 MG TABLET PO PRN ×2 (10:23→16:02)
[2018-05-07] MEDS: PRENATAL VITAMINS W/ FOLIC ACID TABLET (FP) PO SCH (10:23)
[2018-05-07] MEDS: LIDOCAINE 5% TOPICAL PATCH TP SCH (10:23)
--- NOTE | 2018-05-07 12:31 | PN ---
BHS Progress Note (SOAP) Subjective: muscle cramping sweat tremor trouble sleep at night Objective: 05/07/18 12:30 Vital Signs Temperature 98.4 F 05/07/18 09:25 Pulse Rate 76 05/07/18 09:25 Respiratory Rate 16 05/07/18 09:25 Blood Pressure 98/60 05/07/18 09:25 O2 Sat by Pulse Oximetry (%) Laboratory Last Values WBC 5.2 K/mm3 (4.0-10.0) 05/05/18 07:30 RBC 4.09 M/mm3 (3.60-5.2) 05/05/18 07:30 Hgb 11.9 GM/dL (10.7-15.3) 05/05/18 07:30 Hct 34.9 % (32.4-45.2) 05/05/18 07:30 MCV 85.5 fl (80-96) 05/05/18 07:30 MCH 29.1 pg (25.7-33.7) 05/05/18 07:30 MCHC 34.0 g/dl (32.0-36.0) 05/05/18 07:30 RDW 14.2 % (11.6-15.6) 05/05/18 07:30 Plt Count 169 K/MM3 (134-434) 05/05/18 07:30 MPV 7.9 fl (7.5-11.1) 05/05/18 07:30 Sodium 141 mmol/L (136-145) 05/05/18 07:30 Potassium 4.3 mmol/L (3.5-5.1) 05/05/18 07:30 Chloride 104 mmol/L (98-107) 05/05/18 07:30 Carbon Dioxide 29 mmol/L (21-32) 05/05/18 07:30 Anion Gap 8 MMOL/L (8-16) 05/05/18 07:30 BUN 7 mg/dL (7-18) 05/05/18 07:30 Creatinine 0.5 mg/dL (0.55-1.02) L 05/05/18 07:30 Creat Clearance w eGFR > 60 (>60) 05/05/18 07:30 Random Glucose 91 mg/dL (74-106) 05/05/18 07:30 Calcium 8.8 mg/dL (8.5-10.1) 05/05/18 07:30 Total Bilirubin 0.5 mg/dL (0.2-1.0) 05/05/18 07:30 AST 26 U/L (15-37) 05/05/18 07:30 ALT 22 U/L (12-78) 05/05/18 07:30 Alkaline Phosphatase 77 U/L (45-117) 05/05/18 07:30 Total Protein 6.9 g/dl (6.4-8.2) 05/05/18 07:30 Albumin 3.6 g/dl (3.4-5.0) 05/05/18 07:30 Urine Color Yellow 05/04/18 Unknown Urine Appearance Cloudy 05/04/18 Unknown Urine pH 6.0 (5.0-8.0) 05/04/18 Unknown Ur Specific [place] 1.016 (1.001-1.035) 05/04/18 Unknown Urine Protein Negative (NEGATIVE) 05/04/18 Unknown Urine Glucose (UA) Negative (NEGATIVE) 05/04/18 Unknown Urine Ketones Negative (NEGATIVE) 05/04/18 Unknown Urine Blood Negative (NEGATIVE) 05/04/18 Unknown Urine Nitrite Negative (NEGATIVE) 05/04/18 Unknown Urine Bilirubin Negative (<2.0 mg/dL) 05/04/18 Unknown Urine Urobilinogen Negative mg/dL (0.2-1.0) 05/04/18 Unknown Ur Leukocyte Esterase 2+ (NEGATIVE) H 05/04/18 Unknown Urine WBC (Auto) 6 /hpf (3-5) 05/04/18 Unknown Urine RBC (Auto) 2 /hpf (0-3) 05/04/18 Unknown Ur Epithelial Cells Many /HPF (FEW) 05/04/18 Unknown Urine Bacteria Rare /hpf (NONE SEEN) 05/04/18 Unknown Urine Mucus Few 05/04/18 Unknown RPR Titer Nonreactive (NONREACTIVE) 05/05/18 07:30 HIV 1&2 Antibody Screen Negative 05/05/18 07:30 HIV P24 Antigen Negative 05/05/18 07:30 lab noted Assessment: 05/07/18 12:31 opiate withdrawal sx Plan: continue opiate detox
[2018-05-07] MEDS: LIDOCAINE PATCH REMOVAL MC SCH (22:26)
[2018-05-07] MEDS: THIAMINE HCL 100 MG TABLET (FP) PO SCH (22:26)
[2018-05-07] MEDS: ZOLPIDEM TARTRATE 5 MG TABLET PO PRN (22:28)
[2018-05-07] MEDS: hydrOXYzine PAMOATE 50 MG CAPSULE (FP) PO PRN (22:28)
[2018-05-08] MEDS ORDERED: METHADONE HCL 10 MG TABLET (FOR DETOX USE ONLY) PO ONE (10:00)
[2018-05-08] MEDS: LIDOCAINE 5% TOPICAL PATCH TP SCH (10:20)
[2018-05-08] MEDS: PRENATAL VITAMINS W/ FOLIC ACID TABLET (FP) PO SCH (10:20)
[2018-05-08] MEDS: hydrOXYzine PAMOATE 50 MG CAPSULE (FP) PO PRN (10:20)
--- NOTE | 2018-05-08 12:36 | PN ---
[facility] Progress Note (SOAP) Subjective: isolated in her room most of the time no tremor less sweat mild muscle soreness no gi distress Objective: 05/08/18 12:35 Vital Signs Temperature 97.5 F L 05/08/18 09:37 Pulse Rate 58 L 05/08/18 09:37 Respiratory Rate 16 05/08/18 09:37 Blood Pressure 104/64 05/08/18 09:37 O2 Sat by Pulse Oximetry (%) Laboratory Last Values WBC 5.2 K/mm3 (4.0-10.0) 05/05/18 07:30 RBC 4.09 M/mm3 (3.60-5.2) 05/05/18 07:30 Hgb 11.9 GM/dL (10.7-15.3) 05/05/18 07:30 Hct 34.9 % (32.4-45.2) 05/05/18 07:30 MCV 85.5 fl (80-96) 05/05/18 07:30 MCH 29.1 pg (25.7-33.7) 05/05/18 07:30 MCHC 34.0 g/dl (32.0-36.0) 05/05/18 07:30 RDW 14.2 % (11.6-15.6) 05/05/18 07:30 Plt Count 169 K/MM3 (134-434) 05/05/18 07:30 MPV 7.9 fl (7.5-11.1) 05/05/18 07:30 Sodium 141 mmol/L (136-145) 05/05/18 07:30 Potassium 4.3 mmol/L (3.5-5.1) 05/05/18 07:30 Chloride 104 mmol/L (98-107) 05/05/18 07:30 Carbon Dioxide 29 mmol/L (21-32) 05/05/18 07:30 Anion Gap 8 MMOL/L (8-16) 05/05/18 07:30 BUN 7 mg/dL (7-18) 05/05/18 07:30 Creatinine 0.5 mg/dL (0.55-1.02) L 05/05/18 07:30 Creat Clearance w eGFR > 60 (>60) 05/05/18 07:30 Random Glucose 91 mg/dL (74-106) 05/05/18 07:30 Calcium 8.8 mg/dL (8.5-10.1) 05/05/18 07:30 Total Bilirubin 0.5 mg/dL (0.2-1.0) 05/05/18 07:30 AST 26 U/L (15-37) 05/05/18 07:30 ALT 22 U/L (12-78) 05/05/18 07:30 Alkaline Phosphatase 77 U/L (45-117) 05/05/18 07:30 Total Protein 6.9 g/dl (6.4-8.2) 05/05/18 07:30 Albumin 3.6 g/dl (3.4-5.0) 05/05/18 07:30 Urine Color Yellow 05/04/18 Unknown Urine Appearance Cloudy 05/04/18 Unknown Urine pH 6.0 (5.0-8.0) 05/04/18 Unknown Ur Specific [place] 1.016 (1.001-1.035) 05/04/18 Unknown Urine Protein Negative (NEGATIVE) 05/04/18 Unknown Urine Glucose (UA) Negative (NEGATIVE) 05/04/18 Unknown Urine Ketones Negative (NEGATIVE) 05/04/18 Unknown Urine Blood Negative (NEGATIVE) 05/04/18 Unknown Urine Nitrite Negative (NEGATIVE) 05/04/18 Unknown Urine Bilirubin Negative (<2.0 mg/dL) 05/04/18 Unknown Urine Urobilinogen Negative mg/dL (0.2-1.0) 05/04/18 Unknown Ur Leukocyte Esterase 2+ (NEGATIVE) H 05/04/18 Unknown Urine WBC (Auto) 6 /hpf (3-5) 05/04/18 Unknown Urine RBC (Auto) 2 /hpf (0-3) 05/04/18 Unknown Ur Epithelial Cells Many /HPF (FEW) 05/04/18 Unknown Urine Bacteria Rare /hpf (NONE SEEN) 05/04/18 Unknown Urine Mucus Few 05/04/18 Unknown RPR Titer Nonreactive (NONREACTIVE) 05/05/18 07:30 HIV 1&2 Antibody Screen Negative 05/05/18 07:30 HIV P24 Antigen Negative 05/05/18 07:30 lab noted Assessment: 05/08/18 12:36 mild with drawal sx Plan: medically supervised detox
[2018-05-08] MEDS: THIAMINE HCL 100 MG TABLET (FP) PO SCH (22:15)
[2018-05-08] MEDS: LIDOCAINE PATCH REMOVAL MC SCH (22:15)
[2018-05-09] MEDS ORDERED: METHADONE HCL 5 MG TABLET (FOR DETOX USE ONLY) PO ONE (06:00)
[2018-05-09 06:27] VITALS: BP 97/66; PULSE 73; TEMP 97.3
--- NOTE | 2018-05-09 08:30 | DS ---
[facility] Detox Discharge Summary Admission Date: 05/04/18 Discharge Date: 05/09/18 - History Present History: Opioid Dependence Additional Comments: 23 years old female admitted on 05/04/18 for opiate withdrawal sx completed detox regimen tolerated well denies opiate withdrawal sx alert oriented x 3 no acute distress aftercare [facility] services - Physical Exam Results Vital Signs: Vital Signs Temperature 97.3 F L 05/09/18 06:00 Pulse Rate 73 05/09/18 06:00 Respiratory Rate 16 05/09/18 06:00 Blood Pressure 97/66 05/09/18 06:00 O2 Sat by Pulse Oximetry (%) Pertinent Admission Physical Exam Findings: opiate withdrawal sx Vital Signs Temperature 97.3 F L 05/09/18 06:00 Pulse Rate 73 05/09/18 06:00 Respiratory Rate 16 05/09/18 06:00 Blood Pressure 97/66 05/09/18 06:00 O2 Sat by Pulse Oximetry (%) Laboratory Last Values WBC 5.2 K/mm3 (4.0-10.0) 05/05/18 07:30 RBC 4.09 M/mm3 (3.60-5.2) 05/05/18 07:30 Hgb 11.9 GM/dL (10.7-15.3) 05/05/18 07:30 Hct 34.9 % (32.4-45.2) 05/05/18 07:30 MCV 85.5 fl (80-96) 05/05/18 07:30 MCH 29.1 pg (25.7-33.7) 05/05/18 07:30 MCHC 34.0 g/dl (32.0-36.0) 05/05/18 07:30 RDW 14.2 % (11.6-15.6) 05/05/18 07:30 Plt Count 169 K/MM3 (134-434) 05/05/18 07:30 MPV 7.9 fl (7.5-11.1) 05/05/18 07:30 Sodium 141 mmol/L (136-145) 05/05/18 07:30 Potassium 4.3 mmol/L (3.5-5.1) 05/05/18 07:30 Chloride 104 mmol/L (98-107) 05/05/18 07:30 Carbon Dioxide 29 mmol/L (21-32) 05/05/18 07:30 Anion Gap 8 MMOL/L (8-16) 05/05/18 07:30 BUN 7 mg/dL (7-18) 05/05/18 07:30 Creatinine 0.5 mg/dL (0.55-1.02) L 05/05/18 07:30 Creat Clearance w eGFR > 60 (>60) 05/05/18 07:30 Random Glucose 91 mg/dL (74-106) 05/05/18 07:30 Calcium 8.8 mg/dL (8.5-10.1) 05/05/18 07:30 Total Bilirubin 0.5 mg/dL (0.2-1.0) 05/05/18 07:30 AST 26 U/L (15-37) 05/05/18 07:30 ALT 22 U/L (12-78) 05/05/18 07:30 Alkaline Phosphatase 77 U/L (45-117) 05/05/18 07:30 Total Protein 6.9 g/dl (6.4-8.2) 05/05/18 07:30 Albumin 3.6 g/dl (3.4-5.0) 05/05/18 07:30 Urine Color Yellow 05/04/18 Unknown Urine Appearance Cloudy 05/04/18 Unknown Urine pH 6.0 (5.0-8.0) 05/04/18 Unknown Ur Specific [place] 1.016 (1.001-1.035) 05/04/18 Unknown Urine Protein Negative (NEGATIVE) 05/04/18 Unknown Urine Glucose (UA) Negative (NEGATIVE) 05/04/18 Unknown Urine Ketones Negative (NEGATIVE) 05/04/18 Unknown Urine Blood Negative (NEGATIVE) 05/04/18 Unknown Urine Nitrite Negative (NEGATIVE) 05/04/18 Unknown Urine Bilirubin Negative (<2.0 mg/dL) 05/04/18 Unknown Urine Urobilinogen Negative mg/dL (0.2-1.0) 05/04/18 Unknown Ur Leukocyte Esterase 2+ (NEGATIVE) H 05/04/18 Unknown Urine WBC (Auto) 6 /hpf (3-5) 05/04/18 Unknown Urine RBC (Auto) 2 /hpf (0-3) 05/04/18 Unknown Ur Epithelial Cells Many /HPF (FEW) 05/04/18 Unknown Urine Bacteria Rare /hpf (NONE SEEN) 05/04/18 Unknown Urine Mucus Few 05/04/18 Unknown RPR Titer Nonreactive (NONREACTIVE) 05/05/18 07:30 HIV 1&2 Antibody Screen Negative 05/05/18 07:30 HIV P24 Antigen Negative 05/05/18 07:30 lab noted - Treatment Hospital Course: Detox Protocol Followed, Detoxed Safely, Responded well, Discharged Condition Good, Rehab Referral Accepted Patient has Accepted a Rehab Referral to: [facility] - Medication Discharge Medications: Ambulatory Orders NK [No Known Home Medication] 08/04/16 - Diagnosis (1) Substance induced mood disorder Status: Suspected (2) Weight loss Status: Acute (3) Nicotine dependence Status: Acute Qualifiers: Nicotine product type: cigarettes Substance use status: in withdrawal Qualified Code(s): F17.213 - Nicotine dependence, cigarettes, with withdrawal (4) Opioid dependence with withdrawal Status: Acute - AMA Did Patient Leave Against Medical Advice: No
== END 2018-05-09 08:57 | disposition home or self-care (01) | DRG 773 ==
LOC: YASAS 18:01 → Y6N 21:44
PROC: HZ2ZZZZ Detoxification Services for Substance Abuse Treatment (ICD-10-PCS; principal; 2018-05-04)
DX: F11.23 Opioid dependence with withdrawal (principal); F17.213 Nicotine dependence, cigarettes, with withdrawal; F19.24 Other psychoactive substance dependence with psychoactive substance-induced mood disorder; G47.00 Insomnia, unspecified; M54.5 Low back pain; R63.4 Abnormal weight loss; Z68.21 Body mass index [BMI] 21.0-21.9, adult
CPT/HCPCS: 36415; 80053; 81003; 81015; 85027; 86593; 87389; 93005; 93010